=== PATIENT | female | born 1960 | race Caucasian/White ===

== ENCOUNTER 2016-07-25 09:25 | Emergency (ER) | payer OTHER ==
[2016-07-25 09:31] VITALS: BP 124/75; PULSE 104; TEMP 97.9; BMI 50.1
[2016-07-25] MEDS ORDERED: ACETAMINOPHEN WITH CODEINE 300MG/30MG TABLET PO ONE (10:14)
--- NOTE | 2016-07-25 10:18 | PDOC ---
History of Present Illness - General Chief Complaint: Toothache Stated Complaint: ABCESS BOIL Time Seen by Provider: 07/25/16 09:58 History Source: Patient Exam Limitations: No Limitations - History of Present Illness Initial Comments: 07/25/16 17:56 Chief complaint: Low lower tooth pain with swelling to left side of face noted today History of present illness: Patient is a 55-year-old female with a history of hypertension and atrial fibrillation here today complaining of a left sided lower facial edema since yesterday with tooth pain and swelling of her gums left lower teeth. Patient reports that she was supposed to have the tooth removed however she is on Coumadin and has to stop taking it for a few days in order to have extractions done. Patient denies any fever. She reports the pain is an 8 out of 10 presently. Patient has been afebrile. Timing/Duration: getting worse Severity: moderate (left sided facial edema, left upper tooth pain ), severe Associated Symptoms: reports: other (left sided facial edema) Past History - Past Medical History Allergies/Adverse Reactions: Allergies Allergy/AdvReac Type Severity Reaction Status Date / Time No Known Allergies Allergy Verified 07/25/16 09:31 Home Medications: Ambulatory Orders Digoxin 125 mcg PO DAILY #30 tablet 10/11/14 Diltiazem Cd [Cardizem Cd -] 360 mg PO DAILY #30 cap.cd.24h 10/11/14 Furosemide [Lasix -] 20 mg PO BID 12/25/14 Warfarin Sodium [Coumadin] 15 mg PO DAILY 12/25/14 Acetaminophen W/ Codeine #3 [Tylenol # 3 -] 1 tab PO Q6H PRN #8 tablet MDD 3 10/06 Penicillin V Potassium [Pen Vee K -] 500 mg PO QID #28 tablet MDD 4 07/25/16 Asthma: Yes Cardiac Disorders: Yes (a flutter) Suicide Attempt (Hx): No - Immunization History Immunization Up to Date: Yes - Psycho/Social/Smoking Cessation Hx Anxiety: No Suicidal Ideation: No Smoking History: Never smoked Have you smoked in the past 12 months: Yes Number of Cigarettes Smoked Daily: 3 If you are a former smoker, when did you quit?: two week ago Information on smoking cessation initiated: No 'Breaking Loose' booklet given: 11/15/14 Hx Alcohol Use: No Drug/Substance Use Hx: No Substance Use Type: None Hx Substance Use Treatment: No Review of Systems - Review of Systems Able to Perform ROS?: Yes Constitutional: No: Symptoms Reported HEENTM: Yes: Dental Problems (left sided upper teeth pain with surrounding edema of gums), Mouth Swelling (upper left sided gums around decayed teeth ) Respiratory: No: Symptoms reported Cardiac (ROS): No: Symptoms Reported ABD/GI: No: Symptoms Reported : No: Symptoms Reported Musculoskeletal: No: Symptoms Reported Integumentary: Yes: Other (left sided facial swelling ) Neurological: No: Symptoms reported *Physical Exam - Vital Signs Last Vital Signs Temp Pulse Resp BP Pulse Ox 97.9 F 104 H 18 124/75 99 07/25/16 09:27 07/25/16 09:27 07/25/16 09:27 07/25/16 09:27 07/25/16 09:27 - Physical Exam General Appearance: Yes: Appropriately Dressed HEENT: positive: TMs Normal, Other (decay teeth upper left with surrounding edema of gums ). negative: Pharyngeal Erythema, Tonsillar Exudate, Tonsillar Erythema, Nasal Congestion, Rhinorrhea, Sinus Tenderness Neck: negative: Lymphadenopathy (R), Lymphadenopathy (L) Respiratory/Chest: positive: Lungs Clear, Normal Breath Sounds. negative: Chest Tender, Respiratory Distress Cardiovascular: positive: Regular Rhythm, Regular Rate, S1, S2 Integumentary: positive: Other (left sided lower facial edema ) Neurologic: negative: Facial Droop Medical Decision Making - Medical Decision Making 07/25/16 17:57 Patient is a 55-year-old female with a history of hypertension and atrial fibrillation here today complaining of a left sided lower facial edema since yesterday with tooth pain and swelling of her gums left lower teeth. Patient reports that she was supposed to have the tooth removed however she is on Coumadin and has to stop taking it for a few days in order to have extractions done. Patient denies any fever. She reports the pain is an 8 out of 10 presently. Patient has been afebrile. tooth decay/abcess with left sided facial edema PLAN pen vk 500 mg qid for 7 days tylenol # 3 po now than every 6 hrs pain # 8 follow up with dentist 07/25/16 17:58 07/25/16 17:58 *DC/Admit/Observation/Transfer Diagnosis at time of Disposition: Toothache, Dental abscess - Discharge Dispostion Disposition: HOME Condition at time of disposition: Stable - Prescriptions Prescriptions: Penicillin V Potassium [Pen Vee K -] 500 mg PO QID #28 tablet MDD 4 Acetaminophen W/ Codeine #3 [Tylenol # 3 -] 1 tab PO Q6H PRN #8 tablet MDD 3 PRN Reason: Severe Pain - Patient Instructions Additional Instructions: Must follow up with your dentist tomorrow and your primary care provider to make arrangements for dental procedures needed Return to emergency room if symptoms worsen increased pain or swelling of face or fever Foods and fluids as tolerated Patient voiced understanding of discharge instructions and all questions were answered
[2016-07-25] MEDS ORDERED: ACETAMINOPHEN WITH CODEINE 300MG/30MG TABLET ONE (10:24)
== END 2016-07-25 10:26 | disposition home or self-care (01) ==
LOC: JERFT 09:25
DX: K04.7 Periapical abscess without sinus (principal); K02.9 Dental caries, unspecified; I10 Essential (primary) hypertension; I48.91 Unspecified atrial fibrillation; Z79.01 Long term (current) use of anticoagulants
CPT/HCPCS: 99281-25

== ENCOUNTER 2017-02-28 13:15 | Emergency (ER) | payer OTHER ==
[2017-02-28 13:23] VITALS: BP 137/68; PULSE 86; TEMP 98.1; BMI 54.8
[2017-02-28] MEDS ORDERED: KETOROLAC TROMETHAMINE 60 MG/2 ML VIAL IM ONE (13:50)
[2017-02-28] MEDS ORDERED: CYCLOBENZAPRINE HCL 10 MG TABLET (FP) PO ONE (13:50)
[2017-02-28] MEDS ORDERED: KETOROLAC TROMETHAMINE 60 MG/2 ML VIAL ONE (13:52)
[2017-02-28] MEDS ORDERED: CYCLOBENZAPRINE HCL 10 MG TABLET (FP) ONE (13:52)
--- NOTE | 2017-02-28 14:12 | PDOC ---
History of Present Illness - General Chief Complaint: Back Pain Stated Complaint: BACK PAIN Time Seen by Provider: 02/28/17 13:30 History Source: Patient - History of Present Illness Occurred: reports: other Severity: reports: severe Pain Location: reports: back Past History - Past Medical History Allergies/Adverse Reactions: Allergies Allergy/AdvReac Type Severity Reaction Status Date / Time No Known Allergies Allergy Verified 02/28/17 13:19 Home Medications: Ambulatory Orders Digoxin 125 mcg PO DAILY #30 tablet 10/11/14 Diltiazem Cd [Cardizem Cd -] 360 mg PO DAILY #30 cap.cd.24h 10/11/14 Furosemide [Lasix -] 20 mg PO BID 12/25/14 Warfarin Sodium [Coumadin] 15 mg PO DAILY 12/25/14 Acetaminophen [Tylenol] 650 mg PO Q6H #30 tablet 02/28/17 Cyclobenzaprine HCl [Flexeril -] 10 mg PO TID #9 tablet 02/28/17 Metoprolol Tartrate 100 mg PO ASDIR 02/28/17 Tramadol HCl 50 mg PO Q6H #6 tablet MDD 200 mg 02/28/17 Asthma: Yes Cardiac Disorders: Yes (a flutter) - Surgical History Cardiac Surgery: Yes (card cath no stents) - Immunization History Immunization Up to Date: Yes - Suicide/Smoking/Psychosocial Hx Smoking History: Never smoked Have you smoked in the past 12 months: Yes Number of Cigarettes Smoked Daily: 3 If you are a former smoker, when did you quit?: two week ago Information on smoking cessation initiated: No 'Breaking Loose' booklet given: 11/15/14 Hx Alcohol Use: No Drug/Substance Use Hx: No Substance Use Type: None Hx Substance Use Treatment: No Review of Systems - Review of Systems Musculoskeletal: Yes: Back Pain Neurological: No: Numbness, Tingling, Weakness *Physical Exam - Vital Signs Last Vital Signs Temp Pulse Resp BP Pulse Ox 98.1 F 86 18 137/68 100 02/28/17 13:20 02/28/17 13:20 02/28/17 13:20 02/28/17 13:20 02/28/17 13:20 - Physical Exam General Appearance: Yes: Appropriately Dressed. No: Apparent Distress HEENT: positive: Normal Voice Neck: positive: Supple Respiratory/Chest: negative: Respiratory Distress Musculoskeletal: positive: Normal Inspection, Vertebral Tenderness (ttp to R gluteus). negative: CVA Tenderness Extremity: positive: Normal Inspection Integumentary: positive: Dry, Warm Neurologic: positive: Fully Oriented, Alert, Normal Mood/Affect, Motor Strength 09/24 Medical Decision Making - Medical Decision Making 02/28/17 13:52 56 yo F, h/o morbid obesity, afib on coumadin, here with back pain. Pt c/o R LBP radiating to posterior aspect of right calf that started 4 days ago. Unable to describe pain, but states it is constant, with an intensity of 9 out of 10 and worse when she stands up or bears weight. Taking Tylenol with no relief. No lower extremity weakness, sensory changes, bowel or bladder incontinence or saddle anesthesia. No recent trauma or other obvious inciting factors as per patient. Patient states she has had this similar pain before in the past and usually comes to the ER for pain control. Has had no spinal imaging in the past See exam LBP Recurrent No red flags at this time M/l MSK vs ?sciatica -pain control -reassess 02/28/17 14:50 Pt reports feeling significantly better after meds. States "I feel like dancing ". Will discharge with pain control and encourage PMD follow-up 02/28/17 14:54 02/28/17 14:56 *DC/Admit/Observation/Transfer Diagnosis at time of Disposition: Low back pain Qualifiers: Chronicity: acute Back pain laterality: right Sciatica presence: unspecified whether sciatica present Qualified Code(s): M54.5 - Low back pain; M54.5 - Low back pain - Discharge Dispostion Disposition: HOME Condition at time of disposition: Improved - Prescriptions Prescriptions: Cyclobenzaprine HCl [Flexeril -] 10 mg PO TID #9 tablet Tramadol HCl 50 mg PO Q6H #6 tablet MDD 200 mg Acetaminophen [Tylenol] 650 mg PO Q6H #30 tablet - Patient Instructions Printed Discharge Instructions: DI for Low Back Pain Additional Instructions: Take Tylenol and Flexeril for pain. If you need further relief, take tramadol. Please follow-up with your PMD
== END 2017-02-28 14:57 | disposition home or self-care (01) ==
LOC: JERFT 13:15
PROC: 3E0233Z Introduction of Anti-inflammatory into Muscle, Percutaneous Approach (ICD-10-PCS; principal; 2017-02-28)
DX: M54.5 Low back pain (principal); I48.91 Unspecified atrial fibrillation; Z79.01 Long term (current) use of anticoagulants
CPT/HCPCS: 99281-25

== ENCOUNTER 2017-03-06 14:15 | Inpatient (IN) | payer OTHER ==
--- NOTE | 2017-03-06 14:39 | PDOC ---
Attending Attestation - Resident Resident Name: David Mendoza - ED Attending Attestation I have performed the following: I have examined & evaluated the patient, The case was reviewed & discussed with the resident, I agree w/resident's findings & plan, Exceptions are as noted - HPI HPI: 03/06/17 14:36 Cold Symptoms by ambulance - Physicial Exam PE: 03/06/17 14:37 VSS, NAD, Non-Toxic - Medical Decision Making 03/06/17 14:[address] Mendoza's assessment and plan
[2017-03-06] MEDS ORDERED: ACETAMINOPHEN 325 MG TABLET (FP) ONE ×2 (15:15→15:16)
[2017-03-06] MEDS ORDERED: ACETAMINOPHEN 325 MG SUPP.RECT ONE (15:16)
[2017-03-06] MEDS ORDERED: SODIUM CHLORIDE 0.9% 1000 ML INFUS.BAG IV STA (15:24)
[2017-03-06] MEDS ORDERED: PIPERACILLIN/TAZOB 4.5 GM/100 ML PRE-DOCKED IVPB ONE (15:27)
[2017-03-06] MEDS ORDERED: VANCOMYCIN 1 GRAM (PRE-DOCKED) 1,000 MG/250 ML BAG IVPB ONE (15:27)
--- NOTE | 2017-03-06 16:05 | PDOC ---
History of Present Illness - General Chief Complaint: Cold Symptoms Stated Complaint: COLD SYMPTOMS Time Seen by Provider: 03/06/17 14:35 History Source: Patient Exam Limitations: No Limitations - History of Present Illness Initial Comments: 03/06/17 16:17 56 year old F with pmh of Atrial Fibrillation and B/l Lower extremity edema presents with cold symptoms. Patient states she was feeling in her usual state of health when she went to taoism, but in the middle of taoism began having chills. She came home and had a steam bath. Due to no improvement in her symptoms she came to the ED. Patient endorses mild SOB and sore throat. The patient denies chest pain, headache and dizziness. Denies fever, nausea, vomiting, diarrhea and constipation. Denies dysuria, frequency, urgency and hematuria. Psh: tubal All: nkda Sh: denies PCP:Dr Angle Thompson 03/06/17 16:36 Past History - Past Medical History Allergies/Adverse Reactions: Allergies Allergy/AdvReac Type Severity Reaction Status Date / Time No Known Allergies Allergy Verified 02/28/17 13:19 Home Medications: Ambulatory Orders Diltiazem Cd [Cardizem Cd -] 360 mg PO DAILY #30 cap.cd.24h 10/11/14 Furosemide [Lasix -] 20 mg PO BID 12/25/14 Acetaminophen [Tylenol] 650 mg PO Q6H #30 tablet 02/28/17 Metoprolol Tartrate 100 mg PO DAILY 02/28/17 Warfarin Sodium [Coumadin] 7.5 mg PO DAILY 03/06/17 Warfarin Sodium [Coumadin] 15 mg PO DAILY 03/06/17 Asthma: Yes Cardiac Disorders: Yes (a flutter) - Surgical History Cardiac Surgery: Yes (card cath no stents) - Immunization History Immunization Up to Date: Yes - Suicide/Smoking/Psychosocial Hx Smoking History: Never smoked Have you smoked in the past 12 months: Yes Number of Cigarettes Smoked Daily: 3 If you are a former smoker, when did you quit?: two week ago 'Breaking Loose' booklet given: 11/15/14 Hx Alcohol Use: No Drug/Substance Use Hx: No Substance Use Type: None Hx Substance Use Treatment: No Review of Systems - Review of Systems Able to Perform ROS?: Yes Comments:: 03/06/17 16:04 GENERAL/CONSTITUTIONAL: No fever +chills. No weakness. HEAD, EYES, EARS, NOSE AND THROAT: No change in vision. No ear pain or discharge. No sore throat. CARDIOVASCULAR: No chest pain, + shortness of breath RESPIRATORY: No cough, wheezing, or hemoptysis. GASTROINTESTINAL: No nausea, vomiting, diarrhea or constipation. GENITOURINARY: No dysuria, frequency, or change in urination. MUSCULOSKELETAL: No joint or muscle swelling or pain. No neck or back pain. SKIN: No rash NEUROLOGIC: No headache, vertigo, loss of consciousness, or change in strength/ sensation. ENDOCRINE: No increased thirst. No abnormal weight change HEMATOLOGIC/LYMPHATIC: No anemia, easy bleeding, or history of blood clots. ALLERGIC/IMMUNOLOGIC: No hives or skin allergy. *Physical Exam - Vital Signs Last Vital Signs Temp Pulse Resp BP Pulse Ox 102.8 F H 110 H 16 146/83 96 03/06/17 14:40 03/06/17 14:40 03/06/17 14:40 03/06/17 14:40 03/06/17 15:07 - Physical Exam Comments: 03/06/17 16:04 GENERAL: Awake, alert, and fully oriented, in mild to moderate distress. +Rigors , +Obese HEAD: No signs of trauma, normocephalic, atraumatic EYES: PERRLA, EOMI, sclera anicteric, conjunctiva clear ENT: Auricles normal inspection, hearing grossly normal, nares patent, oropharynx clear without exudates. Dry mucosa NECK: Normal ROM, supple, no lymphadenopathy, JVD, or masses LUNGS: No distress, speaks full sentences, +decreased breath sounds. +b/l exp wheezing HEART: Tachycardic, Regular Rhythm, normal S1 and S2, no murmurs, rubs or gallops, peripheral pulses normal and equal bilaterally. ABDOMEN: Soft, nontender, normoactive bowel sounds. No guarding, no rebound. No masses EXTREMITIES: +B/l lower extremity edema, +decreased ROM. No clubbing or cyanosis. NEUROLOGICAL: Cranial nerves II through XII grossly intact. Normal speech, no focal sensorimotor deficits SKIN: Warm, Dry, normal turgor, no rashes or lesions noted. ED Treatment Course - LABORATORY CBC & Chemistry Diagram: 03/07/17 08:40 03/07/17 07:45 - RADIOLOGY Radiology Studies Ordered: Category Date Time Status CHEST X-RAY PORTABLE* [RAD] Stat Radiology 03/06/17 15:25 Taken Medical Decision Making - Medical Decision Making 03/06/17 16:36 56 year old F with pmh of Atrial Fibrillation and B/l Lower extremity edema presents with cold symptoms. Given hx/pe, will order full sepsis workup. WBC- 18.7. 03/06/17 18:16 Lactic acid-2.8. INR-3.06 UA unremarkable Patient accepted for admission. *DC/Admit/Observation/Transfer Diagnosis at time of Disposition: Lactic acidosis - Discharge Dispostion Admit: Yes - Referrals
[2017-03-06 16:06] LABS: BASOPHIL 0.2 % (0-2.0); EOSINOPHIL 0.1 % (0-4.5); MCH 20.5 pg (25.7-33.7); MCHC 29.7 g/dl (32.0-36.0); MEAN PLT VOLUME 9.3 fl (7.5-11.1); NEUTROPHILS 92.4 % (42.8-82.8); PLATELET COUNT 297 K/MM3 (134-434); RDW 18.5 % (11.6-15.6); WHITE BLOOD COUNT 18.7 K/mm3 (4.0-10.0)
[2017-03-06] MEDS ORDERED: VANCOMYCIN 1 GRAM (PRE-DOCKED) 250 ML IVPB ONE ×2 (16:43→16:45)
[2017-03-06] MEDS ORDERED: PIPERACILLIN/TAZOB 4.5 GM 100 ML IVPB ONE (16:43)
[2017-03-06 16:44] LABS: INR 3.06 (0.82-1.09); PROTHROMBIN TIME (PATIENT) 34.6 SEC (9.98-11.88)
[2017-03-06 16:47] LABS: ACTIVATED PTT 36.9 SECONDS (26.9-34.4)
[2017-03-06 16:50] LABS: URINE APPEARANCE CLEAR; URINE BILIRUBIN NEGATIVE (NEGATIVE); URINE BLOOD NEGATIVE (NEGATIVE); URINE COLOR STRAW; URINE GLUCOSE (UA) NEGATIVE (NEGATIVE); URINE KETONE NEGATIVE (NEGATIVE); URINE NITRITE NEGATIVE (NEGATIVE); URINE PROTEIN NEGATIVE (NEGATIVE); URINE UROBILINOGEN NEGATIVE mg/dL (0.2-1.0)
[2017-03-06 17:44] LABS: HYPOCHROMIA 2+; MICROCYTOSIS 1+
[2017-03-06] MEDS ORDERED: ACETAMINOPHEN INJECTION 100 ML IVPB ONE (19:15)
[2017-03-06 19:16] LABS: VENOUS PH 7.42 (7.32-7.42)
[2017-03-06 20:50] LABS: URINE LEUK ESTERASE Negative (NEGATIVE)
[2017-03-06] MEDS ORDERED: ACETAMINOPHEN 1000 MG/100 ML VIAL (NON FORMULARY) IVPB ONE (22:46)
[2017-03-06] MEDS ORDERED: PATIENT'S OWN MEDICATION (NON-FORMULARY) (Metoprolol Tartrate [Metoprolol Tartrate] 100 MG PO SCH (23:45)
[2017-03-07 01:22] LABS: ALBUMIN 2.8 g/dl (3.4-5.0); ALK PHOS 83 U/L (45-117); ANION GAP 10 (8-16); BILIRUBIN,TOTAL 0.5 mg/dL (0.2-1.0); CALCIUM 7.9 mg/dL (8.5-10.1); CO2 26 mmol/L (21-32); CREATININE 1.2 mg/dL (0.55-1.02); GLUCOSE,RANDOM 135 mg/dL (74-106); SGPT/ALT 25 U/L (12-78)
[2017-03-07 01:26] LABS: SGOT/AST 32 U/L (15-37)
[2017-03-07 02:12] VITALS: BMI 61.7
[2017-03-07] MEDS: FUROSEMIDE 20 MG TABLET (FP) PO SCH ×2 (05:52→15:17)
[2017-03-07 08:32] LABS: ALBUMIN 2.6 g/dl (3.4-5.0); ALK PHOS 83 U/L (45-117); ANION GAP 8 (8-16); BILIRUBIN,TOTAL 0.7 mg/dL (0.2-1.0); CALCIUM 7.9 mg/dL (8.5-10.1); CO2 26 mmol/L (21-32); CREATININE 0.9 mg/dL (0.55-1.02); GLUCOSE,RANDOM 93 mg/dL (74-106); SGOT/AST 25 U/L (15-37); SGPT/ALT 22 U/L (12-78); TOT PROT 5.9 g/dl (6.4-8.2)
[2017-03-07] MEDS: ACETAMINOPHEN 325 MG TABLET (FP) PO PRN ×2 (08:44→15:17)
--- NOTE | 2017-03-07 08:54 | HP ---
Admitting History and Physical - Primary Care Physician PCP: Angle Thompson - Admission Chief Complaint: chills History of Present Illness: was well until yesterday am, when she developed chills, did not resolve so came to er febrile in er over 102, blood cultures are positive denies any other problems was seen in office 1 week ago for left sciatica, has much improved since with pt and prn tylenol History Source: Patient Limitations to Obtaining History: No Limitations - Past Medical History Cardiovascular: Yes: AFIB, CHF, HTN, Hyperlipdemia, Other (bilateral leg edema to knees for years) Pulmonary: Yes: Asthma, Bronchitis ...LMP: 10/01/14 ...: No Heme/Onc: Yes: Anemia (cuurrent ) Infectious Disease: Yes: Other (h/o conjunctivitis diagnosed in September). No: AIDS , C-Diff, Herpes Zoster Psych: Yes: Anxiety Dermatology: Yes: Other (thickened LE skin folds) - Past Surgical History Past Surgical History: Yes: Tubal Ligation - Smoking History Smoking history: Former smoker Have you smoked in the past 12 months: No Aproximately how many cigarettes per day: 3 If you are a former smoker, when did you quit?: 2014 - Alcohol/Substance Use Hx Alcohol Use: No - Social History Usual Living Arrangement: Yes: With Child ADL: Independent History of Recent Travel: No Home Medications - Allergies Allergies/Adverse Reactions: Allergies Allergy/AdvReac Type Severity Reaction Status Date / Time No Known Allergies Allergy Verified 02/28/17 13:19 - Home Medications Home Medications: Ambulatory Orders Diltiazem Cd [Cardizem Cd -] 360 mg PO DAILY #30 cap.cd.24h 10/11/14 Furosemide [Lasix -] 20 mg PO BID 12/25/14 Acetaminophen [Tylenol] 650 mg PO Q6H #30 tablet 02/28/17 Metoprolol Tartrate 100 mg PO ASDIR 02/28/17 Warfarin Sodium [Coumadin] 7.5 mg PO DAILY 03/06/17 Warfarin Sodium [Coumadin] 15 mg PO DAILY 03/06/17 Family Disease History - Family Disease History Family Disease History: Diabetes: Sister ( of "[place] and DM" age 50), Heart Disease: Sister Review of Systems - Review of Systems Constitutional: reports: Chills Eyes: reports: No Symptoms HENT: reports: Other (sinus headache) Neck: reports: No Symptoms Cardiovascular: reports: No Symptoms Respiratory: reports: No Symptoms Gastrointestinal: reports: No Symptoms Genitourinary: reports: No Symptoms Musculoskeletal: reports: Back Pain (improving) Integumentary: reports: Erythema (left lower leg) Neurological: reports: No Symptoms Endocrine: reports: No Symptoms Hematology/Lymphatic: reports: No Symptoms Psychiatric: reports: No Symptoms Physical Examination Vital Signs: Vital Signs Temperature 99.7 F H 03/07/17 06:00 Pulse Rate 119 H 03/07/17 06:00 Respiratory Rate 20 03/07/17 06:00 Blood Pressure 107/71 03/07/17 06:00 O2 Sat by Pulse Oximetry (%) 95 03/07/17 01:00 Constitutional: Yes: No Distress, Calm, Obese (morbidly) Eyes: Yes: Conjunctiva Clear, EOM Intact HENT: Yes: Normocephalic Neck: Yes: Trachea Midline Cardiovascular: Yes: Pulse Irregular Respiratory: Yes: Regular, Other (scattered wheezing) Gastrointestinal: Yes: Normal Bowel Sounds, Soft Renal/: Yes: WNL Musculoskeletal: Yes: WNL Edema: Yes (chronic bilateral edema) Peripheral Pulses WNL: Yes Integumentary: Yes: Erythema (warmth and mild tenderness over left [place] and calf ) Neurological: Yes: WNL ...Motor Strength: WNL Psychiatric: Yes: WNL Labs: CBC, BMP 03/07/17 07:45 Abnormal Lab Results 03/06/17 03/06/17 03/06/17 15:47 15:47 15:47 WBC 18.7 H D Hgb 9.8 L MCV 69.0 L MCH 20.5 L MCHC 29.7 L RDW 18.5 H D Neutrophils % 92.4 H D Lymphocytes % 3.3 L D PT with INR 34.60 H INR 3.06 H D PTT (Actin FS) 36.9 H D POC VBG pO2 Creatinine Random Glucose Lactic Acid 2.8 H* Calcium Total Protein Albumin 03/06/17 03/06/17 03/07/17 19:00 19:00 00:40 WBC Hgb MCV MCH MCHC RDW Neutrophils % Lymphocytes % PT with INR INR PTT (Actin FS) POC VBG pO2 70.2 H Creatinine 1.2 H D Random Glucose 135 H Lactic Acid 3.3 H* Calcium 7.9 L Total Protein 6.0 L Albumin 2.8 L 03/07/17 07:45 WBC Hgb MCV MCH MCHC RDW Neutrophils % Lymphocytes % PT with INR INR PTT (Actin FS) POC VBG pO2 Creatinine Random Glucose Lactic Acid Calcium 7.9 L Total Protein 5.9 L Albumin 2.6 L Imaging - Results Chest X-ray: Report Reviewed Problem List - Problems (1) Lactic acidosis Code(s): E87.2 - ACIDOSIS (2) Lymphedema Code(s): I89.0 - LYMPHEDEMA, NOT ELSEWHERE CLASSIFIED (3) Obese Code(s): E66.9 - OBESITY, UNSPECIFIED Qualifiers: Obesity type: due to excess calories Obesity classification: adult class 3 (BMI >= 40) Body mass index: BMI 60.0-69.9 (4) Atrial fibrillation Code(s): I48.91 - UNSPECIFIED ATRIAL FIBRILLATION Qualifiers: Atrial fibrillation type: chronic Qualified Code(s): I48.2 - Chronic atrial fibrillation; I48.2 - Chronic atrial fibrillation; I48.2 - Chronic atrial fibrillation; I48.2 - Chronic atrial fibrillation (5) Cellulitis Code(s): L03.90 - CELLULITIS, UNSPECIFIED Qualifiers: Site of cellulitis: extremity Site of cellulitis of extremity: lower extremity Laterality: left Qualified Code(s): L03.116 - Cellulitis of left lower limb; L03.116 - Cellulitis of left lower limb (6) Bacteremia Code(s): R78.81 - BACTEREMIA Assessment/Plan iv abx as per id received alexis horton x1 does check echo continue home medications theresa flores
[2017-03-07 09:08] LABS: MCH 20.1 pg (25.7-33.7); MCHC 29.1 g/dl (32.0-36.0); MEAN CELL VOLUME 68.9 fl (80-96); MEAN PLT VOLUME 8.6 fl (7.5-11.1); PLATELET COUNT 234 K/MM3 (134-434); RDW 18.3 % (11.6-15.6); WHITE BLOOD COUNT 27.9 K/mm3 (4.0-10.0)
--- NOTE | 2017-03-07 09:09 | PN ---
Progress Note (short form) - Note Progress Note: ID Consult dictated Cellulitis / Lymphangitis l LE Streptococcal bacteremia/ sepsis secondary to skin source Lactic acidosis Pending c/s empiric ceftriaxone/ vancomycin Echocardiogram
--- NOTE | 2017-03-07 09:18 | CON.CARD ---
Consult Consult Specialty:: CArdiology - History of Present Illness History of Present Illness: 56 year old F with pmh of Atrial Fibrillation and B/l Lower extremity edema presents with cold symptoms. Patient states she was feeling in her usual state of health when she went to [facility]ri[facility], but in the middle of tenriism began having chills. She came home and had a steam bath. Due to no improvement in her symptoms she came to the ED. Patient endorses mild SOB and sore throat. The patient denies chest pain, headache and dizziness. Denies fever, nausea, vomiting, diarrhea and constipation. Denies dysuria, frequency, urgency and hematuria. Psh: tubal All: nkda Sh: denies PCP:Dr Angle Thompson - History Source History Provided By: Patient, Medical Record - Past Medical History Cardio/Vascular: Yes: AFIB, CHF, HTN, Hyperlipdemia, Other (bilateral leg edema to knees for years) Pulmonary: Yes: Asthma, Bronchitis ...LMP: 10/01/14 ...: No Infectious Disease: Yes: Other (h/o conjunctivitis diagnosed in September). No: AIDS , C-Diff, Herpes Zoster Psych: Yes: Anxiety Dermatology: Yes: Other (thickened LE skin folds) - Past Surgical History Past Surgical History: Yes: Tubal Ligation - Alcohol/Substance Use Hx Alcohol Use: No - Smoking History Smoking history: Former smoker Have you smoked in the past 12 months: No Aproximately how many cigarettes per day: 3 If you are a former smoker, when did you quit?: 2013 - Social History Usual Living Arrangement: With Child ADL: Independent History of Recent Travel: No Home Medications - Allergies Allergies/Adverse Reactions: Allergies Allergy/AdvReac Type Severity Reaction Status Date / Time No Known Allergies Allergy Verified 02/28/17 13:19 - Home Medications Home Medications: Ambulatory Orders Diltiazem Cd [Cardizem Cd -] 360 mg PO DAILY #30 cap.cd.24h 10/11/14 Furosemide [Lasix -] 20 mg PO BID 12/25/14 Acetaminophen [Tylenol] 650 mg PO Q6H #30 tablet 02/28/17 Metoprolol Tartrate 100 mg PO DAILY 02/28/17 Warfarin Sodium [Coumadin] 7.5 mg PO DAILY 03/06/17 Warfarin Sodium [Coumadin] 15 mg PO DAILY 03/06/17 Family Disease History - Family Disease History Family Disease History: Diabetes: Sister ( of "TN and DM" age 50), Heart Disease: Sister Review of Systems - Review of Systems Constitutional: reports: No Symptoms Eyes: reports: No Symptoms HENT: reports: No Symptoms Neck: reports: No Symptoms Cardiovascular: reports: No Symptoms Gastrointestinal: reports: No Symptoms Genitourinary: reports: No Symptoms Breasts: reports: No Symptoms Reported Musculoskeletal: reports: No Symptoms Integumentary: reports: No Symptoms Neurological: reports: No Symptoms Endocrine: reports: No Symptoms Hematology/Lymphatic: reports: No Symptoms Psychiatric: reports: No Symptoms Vital Signs: Vital Signs Temperature 99.7 F H 03/07/17 06:00 Pulse Rate 119 H 03/07/17 06:00 Respiratory Rate 20 03/07/17 06:00 Blood Pressure 107/71 03/07/17 06:00 O2 Sat by Pulse Oximetry (%) 95 03/07/17 01:00 Constitutional: Yes: Well Nourished, No Distress, Calm Eyes: Yes: WNL, Conjunctiva Clear, EOM Intact HENT: Yes: WNL, Atraumatic, Normocephalic Neck: Yes: WNL, Supple, Trachea Midline Respiratory: Yes: WNL, Regular, CTA Bilaterally Gastrointestinal: Yes: WNL, Normal Bowel Sounds Renal/: Yes: WNL Cardiovascular: Yes: Pulse Irregular Heart Sounds: Yes: S1, S2 Musculoskeletal: Yes: WNL Extremities: Yes: WNL Edema: LLE: 3+, RLE: 3+ Integumentary: Yes: WNL Neurological: Yes: WNL, Alert, Oriented ...Motor Strength: WNL Psychiatric: Yes: WNL, Alert, Oriented - Other Data Labs, Other Data: CBC, BMP 03/07/17 08:40 03/07/17 07:45 INR, PTT INR 3.06 (0.82-1.09) H D 03/06/17 15:47 Troponin, BNP 03/06/17 18:58 Troponin I Cancelled Troponin, BNP 03/06/17 18:58 Troponin I Cancelled Imaging - Results Chest X-ray: Image Reviewed (no i/e) EKG: Pending Problem List - Problems (1) Atrial fibrillation Code(s): I48.91 - UNSPECIFIED ATRIAL FIBRILLATION Qualifiers: Atrial fibrillation type: chronic Qualified Code(s): I48.2 - Chronic atrial fibrillation; I48.2 - Chronic atrial fibrillation; I48.2 - Chronic atrial fibrillation; I48.2 - Chronic atrial fibrillation (2) Bacteremia Code(s): R78.81 - BACTEREMIA (3) Cellulitis Code(s): L03.90 - CELLULITIS, UNSPECIFIED Qualifiers: Site of cellulitis: extremity Site of cellulitis of extremity: lower extremity Laterality: left Qualified Code(s): L03.116 - Cellulitis of left lower limb; L03.116 - Cellulitis of left lower limb (4) Lactic acidosis Code(s): E87.2 - ACIDOSIS (5) Abscess Code(s): L02.91 - CUTANEOUS ABSCESS, UNSPECIFIED (6) Anemia Code(s): D64.9 - ANEMIA, UNSPECIFIED Qualifiers: 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 Qualified Code(s): D50.0 - Iron deficiency anemia secondary to blood loss ( chronic); D50.0 - Iron deficiency anemia secondary to blood loss (chronic) (7) Atrial flutter Code(s): I48.92 - UNSPECIFIED ATRIAL FLUTTER Qualifiers: Atrial flutter type: typical Qualified Code(s): I48.3 - Typical atrial flutter; I48.3 - Typical atrial flutter; I48.3 - Typical atrial flutter; I48.3 - Typical atrial flutter (8) DVT prophylaxis Code(s): [id number] - (9) Dental abscess Code(s): K04.7 - PERIAPICAL ABSCESS WITHOUT SINUS (10) Diastolic CHF Code(s): I50.30 - UNSPECIFIED DIASTOLIC (CONGESTIVE) HEART FAILURE (11) [place] cardiac risk >20% in next 10 years Code(s): Z91.89 - OTH PERSONAL RISK FACTORS, NOT ELSEWHERE CLASSIFIED (12) Hypercoagulable state Code(s): D68.59 - OTHER PRIMARY THROMBOPHILIA (13) Low back pain Code(s): M54.5 - LOW BACK PAIN Qualifiers: Chronicity: acute Back pain laterality: right Sciatica presence: unspecified whether sciatica present Qualified Code(s): M54.5 - Low back pain; M54.5 - Low back pain (14) Lymphedema Code(s): I89.0 - LYMPHEDEMA, NOT ELSEWHERE CLASSIFIED (15) Obese Code(s): E66.9 - OBESITY, UNSPECIFIED Qualifiers: Obesity type: due to excess calories Obesity classification: adult class 3 (BMI >= 40) Body mass index: BMI 60.0-69.9 (16) Palpitations Code(s): R00.2 - PALPITATIONS (17) Sciatica Code(s): M54.30 - SCIATICA, UNSPECIFIED SIDE (18) Sleep apnea Code(s): G47.30 - SLEEP APNEA, UNSPECIFIED (19) Smokes cigarettes Code(s): F17.210 - NICOTINE DEPENDENCE, CIGARETTES, UNCOMPLICATED (20) Toothache Code(s): K08.8 - OTHER SPECIFIED DISORDERS OF TEETH AND SUPPOR * DO NOT USE * (21) Vaginal bleeding Code(s): N93.9 - ABNORMAL UTERINE AND VAGINAL BLEEDING, UNSPECIFIED Assessment/Plan Imp; af morbid obesity lymphedema htn lactic acidosis chf bacteremia leukocytosis plan; abx echo will f/u thank you for the consult
[2017-03-07] MEDS ORDERED: CEFTRIAXONE 2 GM in DEXTROSE 5%-WATER - 100 ML IVPB SCH (10:00)
[2017-03-07] MEDS ORDERED: LEVOFLOXACIN 500 MG IVPB 100 ML IVPB SCH (10:00)
--- NOTE | 2017-03-07 10:26 | CONS ---
DATE OF CONSULTATION: HISTORY: A 56-year-old morbid obesity female with a history of atrial fibrillation evaluated for positive blood cultures. The patient states that she was well until Monday, March 06, 2017. While at latter day, she developed abrupt onset of shaking chills. She was feeling generally unwell but had no focal pain. She returned home and continued to have chills. She presented to the emergency room where she was noted to be febrile to 102.9 with a marked leukocytosis and lactic acidosis. Cultures were obtained, and she was empirically treated with Levaquin, vancomycin, and Zosyn. Today, lab reports positive blood cultures for gram-positive cocci in pairs and chains. In addition, her left lower extremity is erythematous and warm. She denies any traumatic injury to her left lower extremity. No insect or animal bites or scratches. She denies prior history of serious soft tissue infection requiring hospitalization or history of MRSA. She denies chest pain, shortness of breath, cough, sputum production. No vomiting or diarrhea. No dysuria or hematuria. PAST MEDICAL HISTORY: Positive for atrial fibrillation. ALLERGIES: No known allergies. MEDICATIONS: Coumadin, metoprolol, Lasix, Cardizem. SOCIAL HISTORY: She is a former smoker stopping within the past several weeks. She lives at home with family. Denies pet exposure. SYSTEMS REVIEW: Neurologic: No loss of consciousness, seizure activity, focal weakness. Cardiac: Negative chest pain or palpitations. Respiratory: Negative cough or sputum production. Gastrointestinal: Negative vomiting or diarrhea. Genitourinary: Negative for urinary tract infection. LABORATORY DATA: White count 18.7, neutrophils 92, lymphocytes 3, monocytes 4, hematocrit 33.2, platelet count 297, BUN 17, creatinine 0.9. Urinalysis negative. Liver enzymes normal. Chest x-ray negative for acute infiltrate. PHYSICAL EXAMINATION: General: The patient is awake and alert. She is not acutely toxic appearing. She is morbidly obese. Vital Signs: Temperature 99.7, T-max 102.9, blood pressure 107/71, pulse 118, irregular respirations 20 per minute. HEENT: Sclerae anicteric. Heart: Irregular S1, S2. Lungs: A few crepitations at the bases bilaterally. Abdomen: Obese, soft, nontender. Extremities: Positive for lower extremity edema bilaterally 3+. There is erythema and warmth present on the medial aspect of the left lower extremity in the area of the calf extending to the medial thigh. The area is warm to touch. There is no crepitus or fluctuance. IMPRESSION: 1. Cellulitis and lymphangitis of the left lower extremity. 2. Streptococcal bacteremia/sepsis secondary to skin source. 3. Lactic acidosis. 4. Morbid obesity. 5. Leukocytosis. PLAN: Pending sepsis workup, empiric antibiotic coverage with vancomycin and ceftriaxone. Await identification and blood isolet. Echocardiogram. We will follow. Thank you for the kind referral. ALONA WADE M.D. [id number]
[2017-03-07] MEDS ORDERED: DEXTROSE 5%-WATER 100 ML IVPB ONE (10:39)
[2017-03-07 10:40] LABS: PLATELET ESTIMATE ADEQUATE (NORMAL); TOTAL CELLS COUNTED 100
[2017-03-07] MEDS: CEFTRIAXONE 2 GM in DEXTROSE 5%-WATER 100 ML IVPB SCH (10:42)
[2017-03-07] MEDS: VANCOMYCIN 1,500 MG in DEXTROSE 5%-WATER - 500 ML IVPB SCH ×2 (12:09→20:59)
[2017-03-07] MEDS ORDERED: WARFARIN NA 7.5 MG TABLET (FP) PO SCH (18:00)
[2017-03-08] MEDS: FUROSEMIDE 20 MG TABLET (FP) PO SCH ×2 (05:57→14:16)
[2017-03-08] MEDS: ACETAMINOPHEN 325 MG TABLET (FP) PO PRN (05:58)
--- NOTE | 2017-03-08 07:05 | EKG ---
Test Reason : Blood Pressure : / mmHG Vent. Rate : 102 BPM Atrial Rate : 110 BPM P-R Int : 000 ms QRS Dur : 092 ms QT Int : 322 ms P-R-T Axes : 000 022 238 degrees QTc Int : 419 ms ATRIAL FIBRILLATION WITH RAPID VENTRICULAR RESPONSE LOW VOLTAGE QRS NONSPECIFIC ST AND T WAVE ABNORMALITY ABNORMAL ECG WHEN COMPARED WITH ECG OF 16-NOV-2014 09:22, ATRIAL FIBRILLATION HAS REPLACED ATRIAL FLUTTER T WAVE VARIATION Confirmed by RHIANNA MALONE, CHEVY ([id number]) on 03/08/2017 7:05:00 AM Referred By: ROSSANA LOYOLA DR Confirmed By:CHEVY MOCTEZUMA MD
[2017-03-08 08:35] LABS: BASOPHIL 0.1 % (0-2.0); EOSINOPHIL 0.6 % (0-4.5); MCH 20.5 pg (25.7-33.7); MCHC 29.7 g/dl (32.0-36.0); MEAN CELL VOLUME 69.1 fl (80-96); MEAN PLT VOLUME 9.3 fl (7.5-11.1); NEUTROPHILS 86.6 % (42.8-82.8); PLATELET COUNT 199 K/MM3 (134-434); RDW 18.6 % (11.6-15.6); WHITE BLOOD COUNT 15.2 K/mm3 (4.0-10.0)
[2017-03-08 08:43] LABS: INR 1.65 (0.82-1.09); PROTHROMBIN TIME (PATIENT) 18.7 SEC (9.98-11.88)
[2017-03-08 08:54] LABS: ALBUMIN 2.6 g/dl (3.4-5.0); ANION GAP 5 (8-16); CALCIUM 8.1 mg/dL (8.5-10.1); CO2 30 mmol/L (21-32); GLUCOSE,RANDOM 94 mg/dL (74-106)
[2017-03-08 08:56] LABS: ALK PHOS 92 U/L (45-117); BILIRUBIN,TOTAL 0.5 mg/dL (0.2-1.0); CREATININE 0.8 mg/dL (0.55-1.02); SGOT/AST 22 U/L (15-37); SGPT/ALT 23 U/L (12-78)
[2017-03-08] MEDS: VANCOMYCIN 1,500 MG in DEXTROSE 5%-WATER - 500 ML IVPB SCH (09:47)
[2017-03-08] MEDS ORDERED: DIGOXIN 0.125 MG TABLET (FP) PO SCH (10:00)
[2017-03-08] MEDS ORDERED: METOPROLOL TARTRATE 50 MG TABLET (FP) PO SCH (10:00)
--- NOTE | 2017-03-08 11:18 | PN ---
Progress Note (short form) - Note Progress Note: Vital Signs Period Temp Pulse Resp BP Sys/Parrish Pulse Ox Last 24 Hr 98.1 F-98.8 F 110-120 18-20 106-135/61-89 S1S2 RRR lungs cta chr.leg edema erythema much improved feels much better Microbiology 03/06/17 16:30 Urine Culture - Final Urine - Urine Clean Catch NO GROWTH OBTAINED 03/06/17 15:47 Blood Culture - Preliminary Blood - Peripheral Venous Beta Hem Streptococcus Group F 03/06/17 15:47 Blood Culture - Preliminary Blood - Peripheral Venous Beta Hem Streptococcus Group F CBC, BMP 03/08/17 06:50 03/08/17 06:50 INR 1.65 Streptococcal bacteremia Cellulitis Chr.Afib Morbid Obesity Anemia cont iv abx as per id resume warfarin stool guiacs daily PT eval Problem List - Problems (1) Lactic acidosis Code(s): E87.2 - ACIDOSIS (2) Lymphedema Code(s): I89.0 - LYMPHEDEMA, NOT ELSEWHERE CLASSIFIED (3) Obese Code(s): E66.9 - OBESITY, UNSPECIFIED Qualifiers: Obesity type: due to excess calories Obesity classification: adult class 3 (BMI >= 40) Body mass index: BMI 60.0-69.9 (4) Atrial fibrillation Code(s): I48.91 - UNSPECIFIED ATRIAL FIBRILLATION Qualifiers: Atrial fibrillation type: chronic Qualified Code(s): I48.2 - Chronic atrial fibrillation; I48.2 - Chronic atrial fibrillation; I48.2 - Chronic atrial fibrillation; I48.2 - Chronic atrial fibrillation (5) Cellulitis Code(s): L03.90 - CELLULITIS, UNSPECIFIED Qualifiers: Site of cellulitis: extremity Site of cellulitis of extremity: lower extremity Laterality: left Qualified Code(s): L03.116 - Cellulitis of left lower limb; L03.116 - Cellulitis of left lower limb (6) Bacteremia Code(s): R78.81 - BACTEREMIA
--- NOTE | 2017-03-08 12:22 | PN ---
Progress Note, Physician Chief Complaint: Pt OOB in chair; no chest pain, palpitations; no leg pain. History of Present Illness: 56 year old white woman with PMHx of Atrial Fibrillation and marked B/l Lower extremity edema, HTN, morbid obesity, hyperlipidemia,who presents with cold symptoms. Patient states she was feeling in her usual state of health when she went to religious, but in the middle of religious began having chills. She came home and had a steam bath. Due to no improvement in her symptoms she came to the ED. Patient endorses mild SOB and sore throat. The patient denies chest pain, headache and dizziness. Denies fever, nausea, vomiting, diarrhea and constipation. Denies dysuria, frequency, urgency and hematuria. Psh: tubal All: nkda Sh: denies PCP:Dr Angle Thompson - Current Medication List Current Medications: Active Medications Acetaminophen (Tylenol -) 650 mg PO Q6H PRN PRN Reason: PAIN OR FEVER Last Admin: 03/08/17 05:58 Dose: 650 mg Digoxin (Lanoxin -) 0.125 mg PO DAILY [facility] Last Admin: 03/08/17 09:23 Dose: 0.125 mg Diltiazem HCl (Cardizem Cd -) 360 mg PO DAILY [facility] Last Admin: 03/08/17 09:23 Dose: 360 mg Furosemide (Lasix -) 20 mg PO BIDLASIX [facility] Last Admin: 03/08/17 05:57 Dose: 20 mg Vancomycin HCl 1,500 mg/ (Dextrose) 500 mls @ 250 mls/hr IVPB BID [facility] Last Admin: 03/08/17 09:47 Dose: 250 mls/hr Ceftriaxone Sodium 2 gm/ (Dextrose) 100 mls @ 200 mls/hr IVPB DAILY [facility] Last Admin: 03/07/17 10:42 Dose: 200 mls/hr Metoprolol Tartrate (Lopressor -) 100 mg PO DAILY [facility] Last Admin: 03/08/17 09:23 Dose: 100 mg Warfarin Sodium (Coumadin -) 7.5 mg PO DAILY@1800 [facility] - Objective Vital Signs: Vital Signs Temperature 98.2 F 03/08/17 10:00 Pulse Rate 113 H 03/08/17 10:00 Respiratory Rate 18 03/08/17 10:00 Blood Pressure 118/88 03/08/17 10:00 O2 Sat by Pulse Oximetry (%) 95 03/08/17 09:00 Labs: CBC, BMP 03/08/17 06:50 03/08/17 06:50 INR, PTT INR 1.65 (0.82-1.09) H D 03/08/17 06:50 Problem List - Problems (1) Atrial fibrillation Assessment/Plan: on metoprolol and diltiazem. Would attempt to discontinue digoxin, given its many potential adverse effects, and optimize doses of metoprolol and diltiazem. Change to metoprolol ER for better 24 hour coverage. INR 1.6; IV heparin, or lovenox,until warfarin-- INR 2-3. 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 Code(s): I50.30 - UNSPECIFIED DIASTOLIC (CONGESTIVE) HEART FAILURE (6) Lymphedema Code(s): I89.0 - LYMPHEDEMA, NOT ELSEWHERE CLASSIFIED (7) Obese Assessment/Plan: orthotic aide for this ongoing problem. (Pt weighed nearly 400 lbs on admission; feels it was "water"). Code(s): E66.9 - OBESITY, UNSPECIFIED Qualifiers: Obesity type: due to excess calories Obesity classification: adult class 3 (BMI >= 40) Body mass index: BMI 60.0-69.9 (8) Sleep apnea Assessment/Plan: f/u with sleep specialist. Code(s): G47.30 - SLEEP APNEA, UNSPECIFIED (9) Smokes cigarettes Assessment/Plan: former long-term smoker. Consider CT chest (hx smoking; pulmonary HTN). Code(s): F17.210 - NICOTINE DEPENDENCE, CIGARETTES, UNCOMPLICATED
--- NOTE | 2017-03-08 15:54 | PN ---
Progress Note, Physician History of Present Illness: Feeling much better No c/o leg pain No fever/ chills Temps down afebrile WBC improved BC Grp F strep Echo no vegetations - Current Medication List Current Medications: Active Medications Acetaminophen (Tylenol -) 650 mg PO Q6H PRN PRN Reason: PAIN OR FEVER Last Admin: 03/08/17 05:58 Dose: 650 mg Digoxin (Lanoxin -) 0.125 mg PO DAILY [facility] Last Admin: 03/08/17 09:23 Dose: 0.125 mg Diltiazem HCl (Cardizem Cd -) 360 mg PO DAILY [facility] Last Admin: 03/08/17 09:23 Dose: 360 mg Furosemide (Lasix -) 20 mg PO BIDLASIX [facility] Last Admin: 03/08/17 14:16 Dose: 20 mg Ceftriaxone Sodium 2 gm/ (Dextrose) 100 mls @ 200 mls/hr IVPB DAILY [facility] Last Admin: 03/07/17 10:42 Dose: 200 mls/hr Metoprolol Tartrate (Lopressor -) 100 mg PO DAILY [facility] Last Admin: 03/08/17 09:23 Dose: 100 mg Warfarin Sodium (Coumadin -) 7.5 mg PO DAILY@1800 [facility] - Objective Vital Signs: Vital Signs Temperature 98.1 F 03/08/17 15:28 Pulse Rate 82 03/08/17 15:28 Respiratory Rate 18 03/08/17 15:28 Blood Pressure 113/70 03/08/17 15:28 O2 Sat by Pulse Oximetry (%) 95 03/08/17 09:00 Constitutional: Yes: No Distress Eyes: Yes: Conjunctiva Clear Cardiovascular: Yes: Regular Rate and Rhythm, S1, S2 Respiratory: Yes: CTA Bilaterally Gastrointestinal: Yes: Normal Bowel Sounds, Soft. No: Tenderness Extremities: Yes: Other (decreased erythema/warmth L LE) Edema: Yes Edema: LLE: 3+, RLE: 3+ Labs: CBC, BMP 03/08/17 06:50 03/08/17 06:50 INR, PTT INR 1.65 (0.82-1.09) H D 03/08/17 06:50 Assessment/Plan Cellulitis/ lymphangitis L LE Grp F strep bacteremia/ sepsis Continue ceftriaxone D/C vancomycin
[2017-03-08] MEDS: CEFTRIAXONE 2 GM in DEXTROSE 5%-WATER 100 ML IVPB SCH (16:34)
[2017-03-08] MEDS ORDERED: PT OWN MED DRAWER 7, Y5N ONE (17:51)
[2017-03-09] MEDS: FUROSEMIDE 20 MG TABLET (FP) PO SCH ×2 (06:21→15:18)
[2017-03-09] MEDS ORDERED: PT OWN MED DRAWER 7, Y5N ONE ×3 (07:03→17:17)
[2017-03-09 07:54] LABS: BASOPHIL 0.4 % (0-2.0); EOSINOPHIL 1.5 % (0-4.5); MCH 20.6 pg (25.7-33.7); MCHC 29.6 g/dl (32.0-36.0); MEAN CELL VOLUME 69.4 fl (80-96); MEAN PLT VOLUME 8.7 fl (7.5-11.1); NEUTROPHILS 73.3 % (42.8-82.8); PLATELET COUNT 219 K/MM3 (134-434); RDW 18.1 % (11.6-15.6); WHITE BLOOD COUNT 8.3 K/mm3 (4.0-10.0)
[2017-03-09 08:02] LABS: INR 1.34 (0.82-1.09); PROTHROMBIN TIME (PATIENT) 15.1 SEC (9.98-11.88)
[2017-03-09 08:19] LABS: ALBUMIN 2.6 g/dl (3.4-5.0); ALK PHOS 94 U/L (45-117); ANION GAP 6 (8-16); BILIRUBIN,TOTAL 0.3 mg/dL (0.2-1.0); CALCIUM 8.1 mg/dL (8.5-10.1); CO2 31 mmol/L (21-32); CREATININE 0.7 mg/dL (0.55-1.02); GLUCOSE,RANDOM 99 mg/dL (74-106); SGOT/AST 23 U/L (15-37); SGPT/ALT 26 U/L (12-78); TOT PROT 6.1 g/dl (6.4-8.2)
--- NOTE | 2017-03-09 08:40 | PN ---
Progress Note (short form) - Note Progress Note: INR 1.3 CBC, BMP 03/09/17 06:00 Vital Signs Period Temp Pulse Resp BP Sys/Parrish Pulse Ox Last 24 Hr 97.7 F-98.9 F 82-113 18-20 110-124/55-88 95-95 Microbiology 03/06/17 15:47 Blood - Peripheral Venous Blood Culture - Preliminary Beta Hem Streptococcus Group F 03/06/17 15:47 Blood - Peripheral Venous Blood Culture - Preliminary Beta Hem Streptococcus Group F 03/06/17 16:30 Urine - Urine Clean Catch Urine Culture - Final NO GROWTH OBTAINED S1S2 RRR lungs cta chr edema, decreased erythema on left lower extremity Streptococcal bacteremia Cellulitis Chr.Afib Morbid Obesity Anemia cont iv abx as per id redose warfarin lovenox since she is subtherapeutic add mvi stop digoxin stool guiacs daily PT eval Problem List - Problems (1) Lactic acidosis Code(s): E87.2 - ACIDOSIS (2) Lymphedema Code(s): I89.0 - LYMPHEDEMA, NOT ELSEWHERE CLASSIFIED (3) Obese Code(s): E66.9 - OBESITY, UNSPECIFIED Qualifiers: Obesity type: due to excess calories Obesity classification: adult class 3 (BMI >= 40) Body mass index: BMI 60.0-69.9 (4) Atrial fibrillation Code(s): I48.91 - UNSPECIFIED ATRIAL FIBRILLATION Qualifiers: Atrial fibrillation type: chronic Qualified Code(s): I48.2 - Chronic atrial fibrillation; I48.2 - Chronic atrial fibrillation; I48.2 - Chronic atrial fibrillation; I48.2 - Chronic atrial fibrillation (5) Cellulitis Code(s): L03.90 - CELLULITIS, UNSPECIFIED Qualifiers: Site of cellulitis: extremity Site of cellulitis of extremity: lower extremity Laterality: left Qualified Code(s): L03.116 - Cellulitis of left lower limb; L03.116 - Cellulitis of left lower limb (6) Bacteremia Code(s): R78.81 - BACTEREMIA
[2017-03-09] MEDS: ASCORBIC ACID 500 MG TABLET (FP) PO SCH (10:46)
[2017-03-09] MEDS: FERROUS SO4 325 MG TABLET (FP) PO SCH (10:46)
[2017-03-09] MEDS: METOPROLOL SUCCINATE 100 MG TAB.SR.24H (FP) PO SCH (10:46)
[2017-03-09] MEDS: ENOXAPARIN NA (PORCINE) 120 MG/0.8 ML DISP.SYRIN SQ SCH ×2 (10:47→21:53)
--- NOTE | 2017-03-09 11:00 | PN ---
Progress Note, Physician History of Present Illness: 56 year old F with pmh of Atrial Fibrillation and B/l Lower extremity edema presents with cold symptoms. Patient states she was feeling in her usual state of health when she went to [employer], but in the middle of synagogue began having chills. She came home and had a steam bath. Due to no improvement in her symptoms she came to the ED. Patient endorses mild SOB and sore throat. The patient denies chest pain, headache and dizziness. Denies fever, nausea, vomiting, diarrhea and constipation. Denies dysuria, frequency, urgency and hematuria. Psh: tubal All: nkda Sh: denies PCP:Dr Angle Thompson - Current Medication List Current Medications: Active Medications Acetaminophen (Tylenol -) 650 mg PO Q6H PRN PRN Reason: PAIN OR FEVER Last Admin: 03/08/17 05:58 Dose: 650 mg Ascorbic Acid (Vitamin C -) 500 mg PO DAILY [facility] Last Admin: 03/09/17 10:46 Dose: 500 mg Diltiazem HCl (Cardizem Cd -) 360 mg PO DAILY [facility] Last Admin: 03/09/17 10:46 Dose: 360 mg Enoxaparin Sodium (Lovenox -) 120 mg SQ BID [facility] Last Admin: 03/09/17 10:47 Dose: 120 mg Ferrous Sulfate (Feosol -) 325 mg PO DAILY [facility] Last Admin: 03/09/17 10:46 Dose: 325 mg Furosemide (Lasix -) 20 mg PO BIDLASIX [facility] Last Admin: 03/09/17 06:21 Dose: 20 mg Ceftriaxone Sodium 2 gm/ (Dextrose) 100 mls @ 200 mls/hr IVPB DAILY [facility] Last Admin: 03/08/17 16:34 Dose: 200 mls/hr Metoprolol Succinate (Toprol Xl -) 100 mg PO DAILY [facility] Last Admin: 03/09/17 10:46 Dose: 100 mg Warfarin Sodium (Coumadin -) 15 mg PO ONCE@1800 ONE Stop: 03/09/17 18:01 - Objective Vital Signs: Vital Signs Temperature 97.7 F 03/09/17 06:14 Pulse Rate 103 H 03/09/17 06:14 Respiratory Rate 20 03/09/17 06:14 Blood Pressure 110/55 03/09/17 06:14 O2 Sat by Pulse Oximetry (%) 95 03/08/17 21:00 Eyes: Yes: WNL, Conjunctiva Clear, EOM Intact HENT: Yes: WNL, Atraumatic, Normocephalic Neck: Yes: WNL, Supple, Trachea Midline Cardiovascular: Yes: WNL, Regular Rate and Rhythm Respiratory: Yes: WNL, Regular, CTA Bilaterally Gastrointestinal: Yes: WNL, Normal Bowel Sounds Genitourinary: Yes: WNL Musculoskeletal: Yes: WNL Extremities: Yes: WNL Edema: No Edema: LLE: 3+, RLE: 3+ Integumentary: Yes: WNL Neurological: Yes: WNL, Alert, Oriented ...Motor Strength: WNL Psychiatric: Yes: WNL Labs: CBC, BMP 03/09/17 06:00 03/09/17 06:00 INR, PTT INR 1.34 (0.82-1.09) H 03/09/17 06:00 Problem List - Problems (1) Atrial fibrillation Code(s): I48.91 - UNSPECIFIED ATRIAL FIBRILLATION Qualifiers: Atrial fibrillation type: chronic Qualified Code(s): I48.2 - Chronic atrial fibrillation; I48.2 - Chronic atrial fibrillation; I48.2 - Chronic atrial fibrillation; I48.2 - Chronic atrial fibrillation (2) Bacteremia Code(s): R78.81 - BACTEREMIA (3) Cellulitis Code(s): L03.90 - CELLULITIS, UNSPECIFIED Qualifiers: Site of cellulitis: extremity Site of cellulitis of extremity: lower extremity Laterality: left Qualified Code(s): L03.116 - Cellulitis of left lower limb; L03.116 - Cellulitis of left lower limb (4) Lactic acidosis Code(s): E87.2 - ACIDOSIS (5) Abscess Code(s): L02.91 - CUTANEOUS ABSCESS, UNSPECIFIED (6) Anemia Code(s): D64.9 - ANEMIA, UNSPECIFIED Qualifiers: 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 Qualified Code(s): D50.0 - Iron deficiency anemia secondary to blood loss ( chronic); D50.0 - Iron deficiency anemia secondary to blood loss (chronic) (7) Atrial flutter Code(s): I48.92 - UNSPECIFIED ATRIAL FLUTTER Qualifiers: Atrial flutter type: typical Qualified Code(s): I48.3 - Typical atrial flutter; I48.3 - Typical atrial flutter; I48.3 - Typical atrial flutter; I48.3 - Typical atrial flutter (8) DVT prophylaxis Code(s): [id number] - (9) Dental abscess Code(s): K04.7 - PERIAPICAL ABSCESS WITHOUT SINUS (10) Diastolic CHF Code(s): I50.30 - UNSPECIFIED DIASTOLIC (CONGESTIVE) HEART FAILURE (11) Surveyor cardiac risk >20% in next 10 years Code(s): Z91.89 - OT PERSONAL RISK FACTORS, NOT ELSEWHERE CLASSIFIED (12) Hypercoagulable state Code(s): D68.59 - OTHER PRIMARY THROMBOPHILIA (13) Low back pain Code(s): M54.5 - LOW BACK PAIN Qualifiers: Chronicity: acute Back pain laterality: right Sciatica presence: unspecified whether sciatica present Qualified Code(s): M54.5 - Low back pain; M54.5 - Low back pain (14) Lymphedema Code(s): I89.0 - LYMPHEDEMA, NOT ELSEWHERE CLASSIFIED (15) Obese Code(s): E66.9 - OBESITY, UNSPECIFIED Qualifiers: Obesity type: due to excess calories Obesity classification: adult class 3 (BMI >= 40) Body mass index: BMI 60.0-69.9 (16) Palpitations Code(s): R00.2 - PALPITATIONS (17) Sciatica Code(s): M54.30 - SCIATICA, UNSPECIFIED SIDE (18) Sleep apnea Code(s): G47.30 - SLEEP APNEA, UNSPECIFIED (19) Smokes cigarettes Code(s): F17.210 - NICOTINE DEPENDENCE, CIGARETTES, UNCOMPLICATED (20) Toothache Code(s): K08.8 - OTHER SPECIFIED DISORDERS OF TEETH AND SUPPOR * DO NOT USE * (21) Vaginal bleeding Code(s): N93.9 - ABNORMAL UTERINE AND VAGINAL BLEEDING, UNSPECIFIED Assessment/Plan - Problems (1) Atrial fibrillation Assessment/Plan: on metoprolol and diltiazem. Would attempt to discontinue digoxin, given its many potential adverse effects, and optimize doses of metoprolol and diltiazem. Change to metoprolol ER for better 24 hour coverage. INR 1.6; IV heparin, or lovenox,until warfarin-- INR 2-3. 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 Code(s): I50.30 - UNSPECIFIED DIASTOLIC (CONGESTIVE) HEART FAILURE (6) Lymphedema Code(s): I89.0 - LYMPHEDEMA, NOT ELSEWHERE CLASSIFIED (7) Obese Assessment/Plan: occupational therapist aide for this ongoing problem. (Pt weighed nearly 400 lbs on admission; feels it was "water"). Code(s): E66.9 - OBESITY, UNSPECIFIED Qualifiers: Obesity type: due to excess calories Obesity classification: adult class 3 (BMI >= 40) Body mass index: BMI 60.0-69.9 (8) Sleep apnea Assessment/Plan: f/u with sleep specialist. Code(s): G47.30 - SLEEP APNEA, UNSPECIFIED (9) Smokes cigarettes Assessment/Plan: former long-term smoker. Consider CT chest (hx smoking; pulmonary HTN). Code(s): F17.210 - NICOTINE DEPENDENCE, CIGARETTES, UNCOMPLICATED
[2017-03-09] MEDS: CEFTRIAXONE 2 GM in DEXTROSE 5%-WATER 100 ML IVPB SCH (11:31)
--- NOTE | 2017-03-09 12:21 | PN ---
Progress Note, Physician History of Present Illness: Feeling better No c/o leg pain Ambulatory No c/o fever/ chills - Current Medication List Current Medications: Active Medications Acetaminophen (Tylenol -) 650 mg PO Q6H PRN PRN Reason: PAIN OR FEVER Last Admin: 03/08/17 05:58 Dose: 650 mg Ascorbic Acid (Vitamin C -) 500 mg PO DAILY [facility] Last Admin: 03/09/17 10:46 Dose: 500 mg Diltiazem HCl (Cardizem Cd -) 360 mg PO DAILY [facility] Last Admin: 03/09/17 10:46 Dose: 360 mg Enoxaparin Sodium (Lovenox -) 120 mg SQ BID [facility] Last Admin: 03/09/17 10:47 Dose: 120 mg Ferrous Sulfate (Feosol -) 325 mg PO DAILY [facility] Last Admin: 03/09/17 10:46 Dose: 325 mg Furosemide (Lasix -) 20 mg PO BIDLASIX [facility] Last Admin: 03/09/17 06:21 Dose: 20 mg Ceftriaxone Sodium 2 gm/ (Dextrose) 100 mls @ 200 mls/hr IVPB DAILY [facility] Last Admin: 03/09/17 11:31 Dose: 200 mls/hr Metoprolol Succinate (Toprol Xl -) 100 mg PO DAILY [facility] Last Admin: 03/09/17 10:46 Dose: 100 mg Warfarin Sodium (Coumadin -) 15 mg PO ONCE@1800 ONE Stop: 03/09/17 18:01 - Objective Vital Signs: Vital Signs Temperature 97.7 F 03/09/17 06:14 Pulse Rate 103 H 03/09/17 06:14 Respiratory Rate 20 03/09/17 09:00 Blood Pressure 110/55 03/09/17 06:14 O2 Sat by Pulse Oximetry (%) 95 03/09/17 09:00 Constitutional: Yes: No Distress, Obese Cardiovascular: Yes: Regular Rate and Rhythm, S1, S2 Respiratory: Yes: CTA Bilaterally Gastrointestinal: Yes: Normal Bowel Sounds, Soft. No: Tenderness Extremities: Yes: Other (+ erythema L LE) Edema: Yes Labs: CBC, BMP 03/09/17 06:00 03/09/17 06:00 INR, PTT INR 1.34 (0.82-1.09) H 03/09/17 06:00 Assessment/Plan Cellulitis/ lymphangitis L LE Grp F strep bacteremia/ sepsis Continue ceftriaxone Check echo Repeat BC
[2017-03-09] MEDS ORDERED: WARFARIN NA 7.5 MG TABLET (FP) PO ONE (18:00)
[2017-03-10] MEDS: FUROSEMIDE 20 MG TABLET (FP) PO SCH ×2 (06:14→13:48)
[2017-03-10 08:48] LABS: BASOPHIL 0.8 % (0-2.0); EOSINOPHIL 2.4 % (0-4.5); MCH 20.4 pg (25.7-33.7); MCHC 29.7 g/dl (32.0-36.0); MEAN CELL VOLUME 68.6 fl (80-96); MEAN PLT VOLUME 9.3 fl (7.5-11.1); NEUTROPHILS 58.7 % (42.8-82.8); PLATELET COUNT 264 K/MM3 (134-434); RDW 18.5 % (11.6-15.6); WHITE BLOOD COUNT 7.3 K/mm3 (4.0-10.0)
[2017-03-10 08:56] LABS: INR 1.46 (0.82-1.09); PROTHROMBIN TIME (PATIENT) 16.5 SEC (9.98-11.88)
[2017-03-10 09:34] LABS: ALBUMIN 2.6 g/dl (3.4-5.0); ALK PHOS 92 U/L (45-117); ANION GAP 8 (8-16); BILIRUBIN,TOTAL 0.3 mg/dL (0.2-1.0); CALCIUM 8.4 mg/dL (8.5-10.1); CO2 29 mmol/L (21-32); CREATININE 0.7 mg/dL (0.55-1.02); GLUCOSE,RANDOM 83 mg/dL (74-106); SGOT/AST 20 U/L (15-37); SGPT/ALT 28 U/L (12-78); TOT PROT 6.2 g/dl (6.4-8.2)
[2017-03-10] MEDS: CEFTRIAXONE 2 GM in DEXTROSE 5%-WATER 100 ML IVPB SCH (09:37)
[2017-03-10] MEDS: FERROUS SO4 325 MG TABLET (FP) PO SCH (09:37)
[2017-03-10] MEDS: ENOXAPARIN NA (PORCINE) 120 MG/0.8 ML DISP.SYRIN SQ SCH ×2 (09:37→21:48)
[2017-03-10] MEDS: METOPROLOL SUCCINATE 100 MG TAB.SR.24H (FP) PO SCH (09:37)
[2017-03-10] MEDS: ASCORBIC ACID 500 MG TABLET (FP) PO SCH (09:37)
--- NOTE | 2017-03-10 10:20 | PN ---
Progress Note (short form) - Note Progress Note: ID Subjective improvement Ceftriaxone Selected Entries 03/10/17 09:35 Temperature 98.2 F Pulse Rate 112 H Respiratory 20 Rate Blood Pressure 134/85 LEerythema improved Microbiology 03/06/17 15:47 Blood - Peripheral Venous Blood Culture - Final Beta Hem Streptococcus Group F 03/06/17 15:47 Blood - Peripheral Venous Blood Culture - Final Beta Hem Streptococcus Group F Laboratory Tests 03/10/17 03/10/17 06:00 06:00 WBC 7.3 Hgb 8.3 L Hct 28.0 L Plt Count 264 D BUN 11 Creatinine 0.7 Creat Clearance w eGFR > 60 Assessment Group F bacteremia with cellulitis Plan Consider arrangement for out pt infusion total 14 days Deepak MALONE
--- NOTE | 2017-03-10 10:52 | PN ---
Progress Note, Physician Chief Complaint: Pt OOB in chair; no chest pain, palpitations; no leg pain.Her daughter is at bedside. Pt has questionjs about eating greens when she is taking warfarin. She is happy she has lost 9 lbs since admission: "it's all the water" History of Present Illness: 56 year old white woman with PMHx of Atrial Fibrillation and marked B/l Lower extremity edema, HTN, morbid obesity, hyperlipidemia,who presents with cold symptoms. Patient states she was feeling in her usual state of health when she went to [employer], but in the middle of [employer] began having chills. She came home and had a steam bath. Due to no improvement in her symptoms she came to the ED. Patient endorses mild SOB and sore throat. The patient denies chest pain, headache and dizziness. Denies fever, nausea, vomiting, diarrhea and constipation. Denies dysuria, frequency, urgency and hematuria. Psh: tubal All: nkda Sh: denies PCP:Dr Angle Thompson - Current Medication List Current Medications: Active Medications Acetaminophen (Tylenol -) 650 mg PO Q6H PRN PRN Reason: PAIN OR FEVER Last Admin: 03/08/17 05:58 Dose: 650 mg Ascorbic Acid (Vitamin C -) 500 mg PO DAILY [facility] Last Admin: 03/10/17 09:37 Dose: 500 mg Diltiazem HCl (Cardizem Cd -) 360 mg PO DAILY [facility] [place] Last Admin: 03/10/17 09:36 Dose: 360 mg Enoxaparin Sodium (Lovenox -) 120 mg SQ BID [facility] [place] Last Admin: 03/10/17 09:37 Dose: 120 mg Ferrous Sulfate (Feosol -) 325 mg PO DAILY [facility] [place] Last Admin: 03/10/17 09:37 Dose: 325 mg Furosemide (Lasix -) 20 mg PO BIDLASIX [facility] [place] Last Admin: 03/10/17 06:14 Dose: 20 mg Ceftriaxone Sodium 2 gm/ (Dextrose) 100 mls @ 200 mls/hr IVPB DAILY [facility] [place] Last Admin: 03/10/17 09:37 Dose: 200 mls/hr Metoprolol Succinate (Toprol Xl -) 100 mg PO DAILY [facility] [place] Last Admin: 03/10/17 09:37 Dose: 100 mg - Objective Vital Signs: Vital Signs Temperature 98.2 F 03/10/17 09:35 Pulse Rate 112 H 03/10/17 09:35 Respiratory Rate 20 03/10/17 09:35 Blood Pressure 134/85 03/10/17 09:35 O2 Sat by Pulse Oximetry (%) 95 03/09/17 21:00 Constitutional: Yes: Anxious, Obese Eyes: Yes: WNL Labs: CBC, BMP 03/10/17 06:00 03/10/17 06:00 INR, PTT INR 1.46 (0.82-1.09) H 03/10/17 06:00 Problem List - Problems (1) Atrial fibrillation Code(s): I48.91 - UNSPECIFIED ATRIAL FIBRILLATION Qualifiers: Atrial fibrillation type: chronic Qualified Code(s): I48.2 - Chronic atrial fibrillation; I48.2 - Chronic atrial fibrillation; I48.2 - Chronic atrial fibrillation; I48.2 - Chronic atrial fibrillation (2) Bacteremia Code(s): R78.81 - BACTEREMIA (3) Anemia Code(s): D64.9 - ANEMIA, UNSPECIFIED Qualifiers: 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 Qualified Code(s): D50.0 - Iron deficiency anemia secondary to blood loss ( chronic); D50.0 - Iron deficiency anemia secondary to blood loss (chronic) (4) Atrial flutter Code(s): I48.92 - UNSPECIFIED ATRIAL FLUTTER Qualifiers: Atrial flutter type: typical Qualified Code(s): I48.3 - Typical atrial flutter; I48.3 - Typical atrial flutter; I48.3 - Typical atrial flutter; I48.3 - Typical atrial flutter (5) Diastolic CHF Code(s): I50.30 - UNSPECIFIED DIASTOLIC (CONGESTIVE) HEART FAILURE (6) Lymphedema Code(s): I89.0 - LYMPHEDEMA, NOT ELSEWHERE CLASSIFIED (7) Obese Code(s): E66.9 - OBESITY, UNSPECIFIED Qualifiers: Obesity type: due to excess calories Obesity classification: adult class 3 (BMI >= 40) Body mass index: BMI 60.0-69.9 (8) Sleep apnea Code(s): G47.30 - SLEEP APNEA, UNSPECIFIED (9) Smokes cigarettes Code(s): F17.210 - NICOTINE DEPENDENCE, CIGARETTES, UNCOMPLICATED
[2017-03-10] MEDS ORDERED: PICC LINE 8 ML FLUSH PROTOCOL IVPUSH PRN (12:36)
--- NOTE | 2017-03-10 12:36 | PN ---
Progress Note (short form) - Note Progress Note: CBC, BMP 03/10/17 06:00 03/10/17 06:00 Abnormal Lab Results 03/10/17 03/10/17 03/10/17 06:00 06:00 06:00 Hgb 8.3 L Hct 28.0 L MCV 68.6 L MCH 20.4 L MCHC 29.7 L RDW 18.5 H PT with INR 16.50 H INR 1.46 H Calcium 8.4 L C-Reactive Protein Total Protein 6.2 L Albumin 2.6 L 03/10/17 06:00 Hgb Hct MCV MCH MCHC RDW PT with INR INR Calcium C-Reactive Protein 10.4 H Total Protein Albumin Vital Signs Period Temp Pulse Resp BP Sys/Parrish Pulse Ox Last 24 Hr 97.9 F-98.6 F 88-112 20-20 115-134/63-85 95-95 S1S2 RRR lungs cta chr edema, almost resolved erythema on left lower extremity Streptococcal bacteremia Cellulitis Chr.Afib Morbid Obesity Anemia cont iv abx for total of 14 days blood culture drawn today PICC tomorrow am redose warfarin lovenox since she is subtherapeutic add mvi stop digoxin stool guiacs daily PT eval dc planning tomorrow after PICC if INR therapeutic Problem List - Problems (1) Lactic acidosis Code(s): E87.2 - ACIDOSIS (2) Lymphedema Code(s): I89.0 - LYMPHEDEMA, NOT ELSEWHERE CLASSIFIED (3) Obese Code(s): E66.9 - OBESITY, UNSPECIFIED Qualifiers: Obesity type: due to excess calories Obesity classification: adult class 3 (BMI >= 40) Body mass index: BMI 60.0-69.9 (4) Atrial fibrillation Code(s): I48.91 - UNSPECIFIED ATRIAL FIBRILLATION Qualifiers: Atrial fibrillation type: chronic Qualified Code(s): I48.2 - Chronic atrial fibrillation; I48.2 - Chronic atrial fibrillation; I48.2 - Chronic atrial fibrillation; I48.2 - Chronic atrial fibrillation (5) Cellulitis Code(s): L03.90 - CELLULITIS, UNSPECIFIED Qualifiers: Site of cellulitis: extremity Site of cellulitis of extremity: lower extremity Laterality: left Qualified Code(s): L03.116 - Cellulitis of left lower limb; L03.116 - Cellulitis of left lower limb (6) Bacteremia Code(s): R78.81 - BACTEREMIA
[2017-03-10] MEDS ORDERED: WARFARIN NA 5 MG TABLET (UD) PO ONE (18:00)
[2017-03-10] MEDS ORDERED: WARFARIN NA 7.5 MG TABLET (FP) PO ONE (18:00)
[2017-03-10] MEDS ORDERED: PT OWN MED DRAWER 7, Y5N ONE (21:01)
[2017-03-11] MEDS: FUROSEMIDE 20 MG TABLET (FP) PO SCH ×2 (06:30→14:19)
[2017-03-11 08:44] LABS: BASOPHIL 0.8 % (0-2.0); EOSINOPHIL 2.2 % (0-4.5); MCH 20.4 pg (25.7-33.7); MCHC 29.8 g/dl (32.0-36.0); MEAN CELL VOLUME 68.5 fl (80-96); MEAN PLT VOLUME 9.2 fl (7.5-11.1); NEUTROPHILS 61.3 % (42.8-82.8); PLATELET COUNT 275 K/MM3 (134-434); RDW 18.4 % (11.6-15.6); WHITE BLOOD COUNT 7.4 K/mm3 (4.0-10.0)
--- NOTE | 2017-03-11 09:09 | DS ---
Physical Examination Vital Signs: Vital Signs Temperature 98.9 F 03/10/17 22:00 Pulse Rate 86 03/10/17 22:00 Respiratory Rate 20 03/10/17 22:00 Blood Pressure 132/75 03/10/17 22:00 O2 Sat by Pulse Oximetry (%) 96 03/10/17 21:00 Constitutional: Yes: No Distress, Obese Eyes: Yes: EOM Intact HENT: Yes: Normocephalic Cardiovascular: Yes: Pulse Irregular Respiratory: Yes: CTA Bilaterally Gastrointestinal: Yes: Normal Bowel Sounds, Soft Musculoskeletal: Yes: Back Pain Extremities: No: Erythema Edema: Yes (chronic lymphedema) Integumentary: Yes: Other (dry skin, but erythema and pain resolved) Psychiatric: Yes: WNL Labs: CBC, BMP 03/11/17 06:00 03/10/17 06:00 Discharge Summary Reason For Visit: LACTIC ACIDOSIS Current Active Problems Atrial fibrillation (Acute) Bacteremia (Acute) Cellulitis (Acute) Lactic acidosis (Acute) Hospital Course: admitted for fever, chills and left lower extremity cellulitis. Bacteremic with streptococcus. Symptoms resolved well on iv ceftriaxone. repeat bcx are negative so far. awaiting picc line placement for home iv ABX to complete 14 days. Condition: Fair - Instructions Diet, Activity, Other Instructions: warfarin 15 mg on mon, wed, fri, otherwise 7.5 mg daily repeat inr early next week Referrals: Angle Thompson MD [Primary Care Provider] - Disposition: [facility]/HOME HEALTH CARE - Home Medications Comprehensive Discharge Medication List: Ambulatory Orders Diltiazem Cd [Cardizem Cd -] 360 mg PO DAILY #30 cap.cd.24h 10/11/14 Furosemide [Lasix -] 20 mg PO BID 12/25/14 Acetaminophen [Tylenol] 650 mg PO Q6H #30 tablet 02/28/17 Metoprolol Tartrate 100 mg PO DAILY 02/28/17 Warfarin Sodium [Coumadin] 7.5 mg PO DAILY 03/06/17 Warfarin Sodium [Coumadin] 15 mg PO DAILY 03/06/17 Ceftriaxone Na/Dextrose,Iso [Ceftriaxone 2 gm Piggyback] 2 gm IV DAILY #9 bag
[2017-03-11] MEDS ORDERED: PT OWN MED DRAWER 7, Y5N ONE (09:16)
[2017-03-11 09:22] LABS: INR 1.78 (0.82-1.09); PROTHROMBIN TIME (PATIENT) 20.1 SEC (9.98-11.88)
[2017-03-11] MEDS: METOPROLOL SUCCINATE 100 MG TAB.SR.24H (FP) PO SCH (09:22)
[2017-03-11] MEDS: CEFTRIAXONE 2 GM in DEXTROSE 5%-WATER 100 ML IVPB SCH (09:22)
[2017-03-11] MEDS: ASCORBIC ACID 500 MG TABLET (FP) PO SCH (09:22)
[2017-03-11] MEDS: FERROUS SO4 325 MG TABLET (FP) PO SCH (09:22)
[2017-03-11 12:37] VITALS: BP 108/57; PULSE 118; TEMP 98.2
[2017-03-11] MEDS: ACETAMINOPHEN 325 MG TABLET (FP) PO PRN (14:19)
== END 2017-03-11 15:48 | disposition home health service (06) | DRG 872 ==
LOC: JER 14:15 → JERBED 17:43 → J8W 03-07 01:51
PROVIDERS: ADMIT Internal Medicine; ATTEND Internal Medicine
PROC: 02HV33Z Insertion of Infusion Device into Superior Vena Cava, Percutaneous Approach (ICD-10-PCS; principal; 2017-03-11)
DX: A40.9 Streptococcal sepsis, unspecified (principal); E87.2 Acidosis; L03.116 Cellulitis of left lower limb; Z68.44 Body mass index [BMI] 60.0-69.9, adult; I48.92 Unspecified atrial flutter; I50.30 Unspecified diastolic (congestive) heart failure; I89.0 Lymphedema, not elsewhere classified; I48.2 Chronic atrial fibrillation; E66.01 Morbid (severe) obesity due to excess calories; G47.30 Sleep apnea, unspecified; I11.0 Hypertensive heart disease with heart failure; D72.829 Elevated white blood cell count, unspecified; Z87.891 Personal history of nicotine dependence
CPT/HCPCS: 36415; 36569; 71010-TC; 77001-TC; 80053; 81003; 82803; 83605; 85025; 85610; 85730; 86140; 87040; 87086; 87186; 93005; 93010; 93306-TC; 93971-TC; 97116-GP; 97161-GP; 99284-25; C1751

== ENCOUNTER 2017-05-31 17:49 | Emergency (ER) | payer OTHER ==
[2017-05-31 18:05] VITALS: BP 144/67; PULSE 108; TEMP 97.4; BMI 56.3
--- NOTE | 2017-05-31 18:08 | PDOC ---
Rapid Medical Evaluation Time Seen by Provider: 05/31/17 17:59 Medical Evaluation: Allergies Allergy/AdvReac Type Severity Reaction Status Date / Time No Known Allergies Allergy Verified 02/28/17 13:19 05/31/17 17:59 The patient presents with a chief complaint of: B/L leg swelling and redness. Also endorses pain. Admitted in February for cellulitis of legs. I have performed a brief in-person evaluation of this patient; Pertinent physical exam findings: Mild redness to L Lower extremity with blanching. Legs with tense edema. No warmth or calf pain. I have ordered the following: CBC, CMP, Blood cultures The patient will proceed to the ED for further evaluation. Discharge Disposition - Referrals Referrals: Angle Thompson MD [Primary Care Provider] - - Patient Instructions - Post Discharge Activity
[2017-05-31 18:45] LABS: BASO % 0.9 % (0-2.0); EOS % 1.7 % (0-4.5); HEMATOCRIT 41.4 % (32.4-45.2); LYMPH % 23.2 % (8-40); MCH 25.3 pg (25.7-33.7); MCHC 31.4 g/dl (32.0-36.0); MEAN CELL VOLUME 80.7 fl (80-96); MEAN PLT VOLUME 9.3 fl (7.5-11.1); MONO % 8.8 % (3.8-10.2); NEUT % 65.4 % (42.8-82.8); PLATELET COUNT 263 K/MM3 (134-434); RBC 5.13 M/mm3 (3.60-5.2); RDW 21.2 % (11.6-15.6); WHITE BLOOD COUNT 8.2 K/mm3 (4.0-10.0)
[2017-05-31 18:50] LABS: ADD RBC MORPHOLOGY YES
[2017-05-31 18:57] LABS: ALBUMIN 3.8 g/dl (3.4-5.0); ALK PHOS 142 U/L (45-117); ANION GAP 7 (8-16); BILIRUBIN,TOTAL 0.2 mg/dL (0.2-1.0); BLOOD UREA NITROGEN 16 mg/dL (7-18); CALCIUM 8.9 mg/dL (8.5-10.1); CHLORIDE 100 mmol/L (98-107); CO2 30 mmol/L (21-32); GLUCOSE,RANDOM 95 mg/dL (74-106); POTASSIUM 4.1 mmol/L (3.5-5.1); SGOT/AST 19 U/L (15-37); SGPT/ALT 28 U/L (12-78); SODIUM 137 mmol/L (136-145); TOT PROT 7.9 g/dl (6.4-8.2)
[2017-05-31 20:21] LABS: ANISOCYTOSIS 1+; MACROCYTOSIS 1+; PLATELET ESTIMATE ADEQUATE
--- NOTE | 2017-05-31 21:49 | PDOC ---
History of Present Illness <DougSunbrittani Francis - Last Filed: 05/31/17 21:49> - History of Present Illness Initial Comments: 05/31/17 22:29 56 year old F with PMH of Atrial Fibrillation, HTN and B/l lower extremity edema , hospitalization for cellulitis, presents to the ED complaining of redness, swelling, and stinging to lower extremities since last night. Patient states that her legs became red and swollen so she called her PMD who prescribed her ammonium lactate. She began to feel this stinging-like sensation so she came into the ED today. PMD: Angle Thompson <Ellie Hutton - Last Filed: 05/31/17 22:43> - General Chief Complaint: Edema Stated Complaint: REDNESS TO BOTH OF LEGS Time Seen by Provider: 05/31/17 17:59 Past History - Past Medical History Asthma: Yes Cardiac Disorders: Yes (A-flutter, A-fib) COPD: No HTN: Yes Other medical history: obesity, cellulitis - Surgical History Cardiac Surgery: Yes (card cath no stents) - Immunization History Immunization Up to Date: Yes - Suicide/Smoking/Psychosocial Hx Smoking History: Former smoker Have you smoked in the past 12 months: No Number of Cigarettes Smoked Daily: 3 If you are a former smoker, when did you quit?: 2013 Information on smoking cessation initiated: No 'Breaking Loose' booklet given: 11/15/14 Hx Alcohol Use: No Drug/Substance Use Hx: No Substance Use Type: None Hx Substance Use Treatment: No <DougRafabrittani Francis - Last Filed: 05/31/17 21:49> <Ellie Hutton - Last Filed: 05/31/17 22:43> - Past Medical History Allergies/Adverse Reactions: Allergies Allergy/AdvReac Type Severity Reaction Status Date / Time ammonium lactate lotion 12% AdvReac Severe Uncoded 05/31/17 18:06 Home Medications: Ambulatory Orders Diltiazem Cd [Cardizem Cd -] 360 mg PO DAILY #30 cap.cd.24h 10/11/14 Acetaminophen [Tylenol] 650 mg PO Q6H #30 tablet 02/28/17 Metoprolol Tartrate 100 mg PO DAILY 02/28/17 Warfarin Sodium [Coumadin] 7.5 mg PO DAILY 03/06/17 Warfarin Sodium [Coumadin] 15 mg PO DAILY 03/06/17 Ascorbic Acid [Vitamin C -] 500 mg PO DAILY #30 tablet 03/11/17 Ferrous Sulfate [Feosol] 325 mg PO DAILY #30 tab 03/11/17 Furosemide [Lasix -] 20 mg PO BID #60 tab 03/11/17 Review of Systems - Review of Systems Comments:: 05/31/17 22:30 CONSTITUTIONAL: Absent: fever, no chills, no fatigue EYES: Absent: visual changes ENT: Absent: ear pain, no sore throat CARDIOVASCULAR: Absent: chest pain, no palpitations RESPIRATORY: Absent: cough, no SOB GI: Absent: abdominal pain, no nausea, no vomiting, no constipation, no diarrhea GENITOURINARY: Absent: dysuria, no frequency, no hematuria MUSCULOSKELETAL: Absent: back pain, no arthralgia, no myalgia SKIN: Present: redness, swelling, stinging Absent: rash NEURO: Absent: headache <Ellie Hutton - Last Filed: 05/31/17 22:43> *Physical Exam - Vital Signs Last Vital Signs Temp Pulse Resp BP Pulse Ox 97.4 F L 108 H 19 144/67 96 05/31/17 18:00 05/31/17 18:00 05/31/17 18:00 05/31/17 18:00 05/31/17 18:00 <Sun Camacho - Last Filed: 05/31/17 21:49> - Vital Signs Last Vital Signs Temp Pulse Resp BP Pulse Ox 97.4 F L 108 H 19 144/67 96 05/31/17 18:00 05/31/17 18:00 05/31/17 18:00 05/31/17 18:00 05/31/17 18:00 - Physical Exam Comments: 05/31/17 22:31 GENERAL: Morbidly obese. Well developed, well nourished. Awake and alert. No acute distress. HEENT: Normocephalic, atraumatic. PERRLA, EOMI. No conjunctival pallor. Sclera are non- icteric. Moist mucous membranes. Oropharynx is clear. NECK: Supple. Full ROM. No JVD. Carotid pulses 2+ and symmetric, without bruits. No thyromegaly. No lymphadenopathy. CARDIOVASCULAR: Regular rate and rhythm. No murmurs, rubs, or gallops. Distal pulses are 2+ and symmetric. PULMONARY: No evidence of respiratory distress. Lungs clear to auscultation bilaterally. No wheezing, rales or rhonchi. ABDOMINAL: Soft. Non-tender. Non-distended. No rebound or guarding. No organomegaly. Normoactive bowel sounds. MUSCULOSKELETAL Normal range of motion at all joints. No bony deformities or tenderness. No CVA tenderness. EXTREMITIES: No cyanosis. No clubbing. No edema. No calf tenderness. SKIN: Chronic venous stasis. +1 chronic edema. No evidence of skin breakdown. No ulceration. No abrasion. No red streaking. Warm and dry. No jaundice. NEUROLOGICAL: Alert, awake, appropriate. Cranial nerves 2-12 intact. No deficits to light touch and temperature in face, upper extremities and lower extremities. No motor deficits in the in face, upper extremities and lower extremities. Normoreflexic in the upper and lower extremities. Normal speech. Toes are down-going bilaterally. Gait is normal without ataxia. PSYCHIATRIC: Cooperative. Good eye contact. Appropriate mood and affect. <Ellie Hutton - Last Filed: 05/31/17 22:43> ED Treatment Course - LABORATORY CBC & Chemistry Diagram: 05/31/17 18:20 05/31/17 18:20 - ADDITIONAL ORDERS Additional order review: Laboratory Results 05/31/17 18:20 Sodium 137 Potassium 4.1 Chloride 100 Carbon Dioxide 30 Anion Gap 7 L BUN 16 D Creatinine 1.0 D Creat Clearance w eGFR 56.95 Random Glucose 95 Calcium 8.9 Total Bilirubin 0.2 D AST 19 ALT 28 Alkaline Phosphatase 142 H D Total Protein 7.9 D Albumin 3.8 D 05/31/17 18:20 RBC 5.13 D MCV 80.7 MCHC 31.4 L RDW 21.2 H D MPV 9.3 Neutrophils % 65.4 Lymphocytes % 23.2 Monocytes % 8.8 Eosinophils % 1.7 Basophils % 0.9 <Sun Camacho - Last Filed: 05/31/17 21:49> - LABORATORY CBC & Chemistry Diagram: 05/31/17 18:20 05/31/17 18:20 - ADDITIONAL ORDERS Additional order review: Laboratory Results 05/31/17 18:20 Sodium 137 Potassium 4.1 Chloride 100 Carbon Dioxide 30 Anion Gap 7 L BUN 16 D Creatinine 1.0 D Creat Clearance w eGFR 56.95 Random Glucose 95 Calcium 8.9 Total Bilirubin 0.2 D AST 19 ALT 28 Alkaline Phosphatase 142 H D Total Protein 7.9 D Albumin 3.8 D 05/31/17 18:20 RBC 5.13 D MCV 80.7 MCHC 31.4 L RDW 21.2 H D MPV 9.3 Neutrophils % 65.4 Lymphocytes % 23.2 Monocytes % 8.8 Eosinophils % 1.7 Basophils % 0.9 <Ellie Hutton - Last Filed: 05/31/17 22:43> *DC/Admit/Observation/Transfer <Sun Camacho - Last Filed: 05/31/17 21:49> - Attestations Scribe Attestion: 05/31/17 22:43 Documentation prepared by Ellie Hutton, acting as pesticide use medical coordinator for Sun Camacho MD. <Ellie Hutton - Last Filed: 05/31/17 22:43> Diagnosis at time of Disposition: Chronic venous stasis dermatitis - Discharge Dispostion Disposition: HOME Condition at time of disposition: Stable - Referrals Referrals: Angle Thompson MD [Primary Care Provider] - - Patient Instructions Printed Discharge Instructions: DI for Edema Due to Venous Stasis Additional Instructions: please continua to take your regular medications and followup with your doctor return for worsening symptoms - Post Discharge Activity
== END 2017-05-31 21:57 | disposition home or self-care (01) ==
LOC: JER 17:49
DX: I83.12 Varicose veins of left lower extremity with inflammation (principal); I83.11 Varicose veins of right lower extremity with inflammation
CPT/HCPCS: 36415; 80053; 85025; 87040; 99282-25

== ENCOUNTER 2017-10-01 10:04 | Emergency (ER) | payer OTHER ==
[2017-10-01 10:14] VITALS: BP 120/65; PULSE 95; TEMP 98.2; BMI 57.3
--- NOTE | 2017-10-01 11:02 | PDOC ---
History of Present Illness - General Chief Complaint: Pain, Acute Stated Complaint: KNEE INJURY Time Seen by Provider: 10/01/17 10:56 History Source: Patient Exam Limitations: No Limitations - History of Present Illness Initial Comments: 10/01/17 10:58 left knee Occurred: reports: just prior to arrival Severity: reports: mild Pain Location: reports: none Modifying Factors: improves with: None, cold therapy Loss of Consciousness: no loss of consciousness Associated Symptoms (Fall): denies symptoms Past History - Travel Traveled outside of the country in the last 30 days: No Close contact w/someone who was outside of country & ill: No - Past Medical History Allergies/Adverse Reactions: Allergies Allergy/AdvReac Type Severity Reaction Status Date / Time ammonium lactate lotion 12% AdvReac Severe Uncoded 10/01/17 10:10 Home Medications: Ambulatory Orders Diltiazem Cd [Cardizem Cd -] 360 mg PO DAILY #30 cap.cd.24h 10/11/14 Acetaminophen [Tylenol] 650 mg PO Q6H #30 tablet 02/28/17 Metoprolol Tartrate 100 mg PO DAILY 02/28/17 Warfarin Sodium [Coumadin] 7.5 mg PO DAILY 03/06/17 Warfarin Sodium [Coumadin] 15 mg PO DAILY 03/06/17 Ascorbic Acid [Vitamin C -] 500 mg PO DAILY #30 tablet 03/11/17 Ferrous Sulfate [Feosol] 325 mg PO DAILY #30 tab 03/11/17 Furosemide [Lasix -] 20 mg PO BID #60 tab 03/11/17 Cyclobenzaprine HCl 10 mg PO Q8H PRN #14 tablet 10/01/17 Asthma: Yes Cardiac Disorders: Yes (A-flutter, A-fib) COPD: No HTN: Yes - Surgical History Cardiac Surgery: Yes (card cath no stents) - Immunization History Immunization Up to Date: Yes - Suicide/Smoking/Psychosocial Hx Smoking History: Never smoked Have you smoked in the past 12 months: No Number of Cigarettes Smoked Daily: 3 If you are a former smoker, when did you quit?: 2013 Information on smoking cessation initiated: No 'Breaking Loose' booklet given: 11/15/14 Hx Alcohol Use: No Drug/Substance Use Hx: No Substance Use Type: None Hx Substance Use Treatment: No Trauma Specific PMHX - Complaint Specific PMHX Back Injury: Yes Neck Injury: Yes Review of Systems - Review of Systems Able to Perform ROS?: Yes Is the patient limited Taiwanese proficient: Yes Constitutional: Yes: Symptoms Reported, See HPI. No: Malaise HEENTM: Yes: See HPI. No: Symptoms Reported Respiratory: No: Symptoms reported Musculoskeletal: Yes: Symptoms Reported, See HPI, Back Pain Integumentary: No: Symptoms Reported All Other Systems: Reviewed and Negative *Physical Exam - Vital Signs Last Vital Signs Temp Pulse Resp BP Pulse Ox 98.2 F 95 H 16 120/65 100 10/01/17 10:11 10/01/17 10:11 10/01/17 10:11 10/01/17 10:11 10/01/17 10:11 - Physical Exam General Appearance: Yes: Nourished, Appropriately Dressed, Apparent Distress, Mild Distress HEENT: positive: Normal ENT Inspection, TMs Normal, Pharynx Normal Neck: positive: Supple. negative: Tender Respiratory/Chest: positive: Lungs Clear, Normal Breath Sounds Gastrointestinal/Abdominal: positive: Soft. negative: Tender Musculoskeletal: positive: Normal Inspection, Other (tenderness along paravertebral spinous muscles to low back, again very difficult to examine due to patient's significant morbid obesity). negative: CVA Tenderness Extremity: positive: Normal Capillary Refill, Normal Inspection, Normal Range of Motion (4 patient, has severe elephantitis to lower extremities with peripheral vascular disease and skin changes. Unable to palpate pulses due to these. No erythema, no evidence of cellulitis, no evidence of significant swelling from one leg to the other. ). negative: Tender Integumentary: positive: Warm, Pale, Other. 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 Difficult to examine secondary to severe amount of tissue. Is ambulatory without limp. Is taking Coumadin for chronic AF therefore chances for DVT reduced. We'll treat for spasm and strain and have follow up with Orth O and PMD. Lengthy discussion about weight loss and implications for health *DC/Admit/Observation/Transfer Diagnosis at time of Disposition: Lymphedema Left knee sprain Qualifiers: Encounter type: initial encounter Involved ligament of knee: unspecified ligament Qualified Code(s): S83.92XA - Sprain of unspecified site of left knee, initial encounter Low back strain Qualifiers: Encounter type: initial encounter Qualified Code(s): S39.012A - Strain of muscle, fascia and tendon of lower back, initial encounter - Discharge Dispostion Disposition: HOME Condition at time of disposition: Stable Decision to Admit order: No - Prescriptions Prescriptions: Cyclobenzaprine HCl 10 mg PO Q8H PRN #14 tablet PRN Reason: spasm - Referrals Referrals: Emilio Hdz MD [Staff Physician] - - Patient Instructions Printed Discharge Instructions: Managing Chronic Low Back Pain, DI for Back Spasm Additional Instructions: Rest, no heavy lifting or exercise until pain is resolved Hot soaks to neck and low back as often as possible/hot showers or Jacuzzis No massage or therapy until spasm is gone Ice packs to LEFT KNEE OFTEN NEEDED Continue Tylenol 2- 500mg tABS every 6 hours hours for the next 3 days then as needed for pain and swelling Cyclobenzaprine 1-10mg every 8 hours as needed for spasm If not significant improvement within 24 hours with medication and rest regime, followup with private physician for change in medications and /or therapy. - Post Discharge Activity
== END 2017-10-01 11:27 | disposition home or self-care (01) ==
LOC: JERFT 10:04
DX: I89.0 Lymphedema, not elsewhere classified (principal); S39.012A Strain of muscle, fascia and tendon of lower back, initial encounter; S83.8X2A Sprain of other specified parts of left knee, initial encounter; I10 Essential (primary) hypertension; J45.909 Unspecified asthma, uncomplicated; I48.91 Unspecified atrial fibrillation; Z79.01 Long term (current) use of anticoagulants; Z98.61 Coronary angioplasty status; E66.01 Morbid (severe) obesity due to excess calories; Z68.43 Body mass index [BMI] 50.0-59.9, adult; X58.XXXA Exposure to other specified factors, initial encounter; Y93.89 Activity, other specified; Y92.89 Other specified places as the place of occurrence of the external cause; Y99.8 Other external cause status
CPT/HCPCS: 99281-25